=== PATIENT | male | born 1950 | race Caucasian/White ===

== ENCOUNTER 2020-03-19 17:56 | Inpatient (IN) | payer MEDICARE, SELFPAY ==
--- NOTE | ~2020-03-19 | XR_ITS ---
EXAMINATION: XR chest 1V portable DATE: 03/20/2020 05:00 INDICATION: Hypoxia. TECHNIQUE: A single frontal view of the chest was obtained on 2 radiographs. COMPARISON: Chest 2 views 03/19/2020, chest CT 03/19/2020 FINDINGS: There are lucencies in the upper lungs, consistent with emphysema. There is mild atelectasi s in right mid and lower lung zones. No pleural effusion or pneumothorax. The heart size is normal. T here is a large hiatal hernia. Median sternotomy wires and mediastinal surgical clips are seen, likel y from prior coronary artery bypass grafting. There are old healed rib fractures. IMPRESSION: 1. Mild atelectasis in right mid and lower lung zones. 2. Large hiatal hernia. 3. Emphysema. Reviewed, dictated and finalized at location A.
--- NOTE | ~2020-03-19 | XR_ITS ---
EXAMINATION: XR chest 2V EXAM DATE: 03/19/2020 19:20 INDICATION: Midsternal chest pain. TECHNIQUE: Frontal and lateral projections of the chest obtained and reviewed. There is no prior devan dy for comparison. FINDINGS: Some basilar scarring. Sternotomy wires are present without findings to suggest sternal de hiscence. No confluent consolidation, pneumothorax or pleural effusion suspected. Moderate sized alyssia roesophageal hiatal hernia. Moderate thoracolumbar levoscoliosis. IMPRESSION: No acute findings. Moderate hiatal hernia. Reviewed, dictated and finalized at location A.
--- NOTE | ~2020-03-19 | US_ITS ---
EXAMINATION: US venous doppler [facility] DATE: 03/21/2020 13:13 INDICATION: Lower limb swelling TECHNIQUE: Oliveira scale images without and with compression and Doppler images of the bilateral lower e xtremity veins were obtained. COMPARISON: None FINDINGS: The right common femoral vein, profunda femoral vein, femoral vein, popliteal vein, peroneal trunk, p osterior tibial veins, and greater saphenous vein are patent. The left common femoral vein, profunda femoral vein, femoral vein, popliteal vein, peroneal trunk, po sterior tibial veins, and greater saphenous vein are patent. IMPRESSION: 1. Patent bilateral lower extremity veins. No evidence of deep venous thrombosis. Reviewed, dictated and finalized at location A. IMPRESSION: 1. Patent bilateral lower extremity veins. No evidence of deep venous thrombosi s.
--- NOTE | ~2020-03-19 | CT_ITS ---
EXAMINATION: CTA chest abdomen pelvis EXAM DATE: 03/19/2020 19:16 INDICATION: Left-sided chest and abdominal pain. TECHNIQUE: Spiral CT of the chest, abdomen and pelvis was performed following intravenous injection o f 100 mL Omnipaque 350. Axial, coronal and sagittal images were reviewed. Coronal maximum intensity pixel images of chest reviewed. Maximum intensity projection 3-D reconstructions of the aorta were c reated by the technologist on dedicated workstation. The dose-length product (DLP) for this examina tion was 559.32 mGy-cm. The exposure was tailored according to patient size (auto mA exposure contro l), and iterative reconstruction (ASIR) was used as additional dose reduction technique. There is no prior study for comparison. FINDINGS: No aortic dissection. No central pulmonary emboli. There is moderate abdominal aortic arter ial sclerosis, with mild ectasia. CHEST: There is mild to moderate emphysema. 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 There are no pleura l or pericardial effusions. Some endobronchial debris. There is no mediastinal, hilar or axillary lymphadenopathy. There is no pneumothorax. Heart normal in size. There are sternotomy wires, an d cardiac/coronary surgical changes. Correlate with prior history. ABDOMEN PELVIS: The liver, spleen, adrenal glands and pancreas are unremarkable. There is 2.5 cm per ipherally calcified gallstone. Gallbladder is moderately distended but otherwise unremarkable. Mariam l and splenic veins are patent. Kidneys enhance symmetrically. There is no hydronephrosis. The pr ostate is unremarkable. The bladder is unremarkable. There is no retroperitoneal or pelvic lymphade nopathy. The appendix is normal. There is moderate-sized gastroesophageal hiatal hernia. There is moderate a mount of colonic stool. No free intraperitoneal gas. There is moderate lumbar levoscoliosis with posterior fusion rods. IMPRESSION: 1. No acute chest, abdomen, pelvic findings. 2. Moderate-sized gastroesophageal hiatal hernia. 3. Mild to moderate emphysema. 4. Stigmata of prior asbestos exposure. 5. Cholelithiasis. Moderately distended gallbladder. Reviewed, dictated and finalized at location A.
--- NOTE | 2020-03-19 17:57 | ECG_ITS ---
Measurements Intervals [place] Rate: 71 P: 71 ME: 158 QRS: 80 QRSD: 97 T: 63 QT: 382 QTc: 415 Interpretive Statements SINUS RHYTHM POSSIBLE LEFT ATRIAL ENLARGEMENT INCOMPLETE RIGHT BUNDLE BRANCH BLOCK BORDERLINE ECG Electronically Signed On 03-19-2020 19:22:56 CDT by Mike Boles D.O.
[2020-03-19 18:01] VITALS: BP 102/53; PULSE 72; RESP 22; TEMP 36.8; O2SAT 90
[2020-03-19 18:18] LABS: Basophils Absolute Auto 0.1 K/mm3 (0.0-0.1); Eosinophils Absolute Auto 0.3 K/mm3 (0-0.3); Hematocrit 43.3 % (42.0-52.0); Immature Granulocyte Absolute 0.02 K/mm3 (0.00-0.031); Immature Granulocyte Percent A 0.3 % (0-0.5); Lymphocytes Absolute Auto 1.89 K/mm3 (0.9-3.2); Lymphocytes Percent Auto 32.9 % (18.3-44.2); Mean Corpuscular Hemoglobin 26.7 pg (26-34); Mean Corpuscular Volume 89.1 fl (80-100); Monocytes Absolute Auto 0.6 K/mm3 (0.1-0.6); Monocytes Percent Auto 9.6 % (2.6-8.5); Neutrophils Absolute Auto 2.9 K/mm3 (1.3-6.7); Neutrophils Percent Auto 51.2 % (45.5-73.1); Platelet Count Result 200 k/mm3 (150-375); Red Blood Count 4.86 M/mm3 (4.6-6.20); Red Cell Distribution Width 19.1 % (11.5-14.5); White Blood Count 5.8 K/mm3 (4.5-10.0)
[2020-03-19 18:30] LABS: Anion Gap 5 mmol/L (8-16); Blood Urea Nitrogen 17 mg/dL (9-20); Carbon Dioxide 35 mmol/L (22-30); Chloride 96 mmol/L (98-107); Estimated CRCL calculation 45 ml/min; Estimated Glomerular Filt Rate 54; Glucose 89 mg/dL (75-110); Potassium 4.4 mmol/L (3.4-5.0); Sodium 136 mmol/L (137-145)
[2020-03-19 18:31] LABS: Prothrombin Time 12.9 Seconds (11.1-14.7)
[2020-03-19 18:42] LABS: Troponin I < 0.012 ng/mL (0.000-0.034)
--- NOTE | 2020-03-19 18:49 | ED.CHESTPAIN ---
HPI - Chest Pain General Chief Complaint: Chest Pain <Silvia Welsh MD - Last Filed: 03/20/20 00:47> Stated Complaint: chest pain <Silvia Welsh MD - Last Filed: 03/20/20 00:47> Time Seen by Provider: 03/19/20 18:49 <Silvia Welsh MD - Last Filed: 03/20/20 00:47> Source: patient, family and EMS <Silvia Welsh MD - Last Filed: 03/20/20 00:47> Mode of arrival: EMS <Silvia Welsh MD - Last Filed: 03/20/20 00:47> Limitations: no limitations <Silvia Welsh MD - Last Filed: 03/20/20 00:47> History of Present Illness HPI narrative: Patient is a 69 yo male with a history of COPD, CABG, multiple stents, hyperlipidemia, hypertension who presents for evaluation of chest pain. Patient was shopping at [employer] when he began to feel left-sided chest pain with radiation into the left side of his neck. He denies jaw pain, shoulder pain or left arm pain. Patient felt nauseated, sweaty, and hot with the pain. He took a nitroglycerin which improved his symptoms somewhat, still is having some very mild chest pain over the left chest. He reports radiation of the pain into the left lower flank. He reports heaviness in his left leg. He denies any numbness or weakness. No vomiting. Patient follows with Dr. Gallo ortega as his primary care physician and Dr. Altman at [facility] for cardiology. <Silvia Welsh MD - Last Filed: 03/20/20 00:47> Related Data Home Medications: Home Medications Medication Instructions Recorded Confirmed albuterol sulfate 2.5 mg CONTINUOUS NEBULIZATION Q6H 03/20/20 03/20/20 aspirin [Adult Aspirin] 81 mg PO DAILY 03/20/20 03/20/20 atorvastatin 40 mg PO HS 03/20/20 03/20/20 budesonide-formoterol [Symbicort] 2 puff INHALATION Q12H 03/20/20 03/20/20 cilostazol 100 mg PO BID 03/20/20 03/20/20 clopidogrel 75 mg PO DAILY 03/20/20 03/20/20 duloxetine 30 mg PO HS 03/20/20 03/20/20 finasteride 5 mg PO DAILY 03/20/20 03/20/20 furosemide 40 mg PO DAILY 03/20/20 03/20/20 isosorbide mononitrate 60 mg PO DAILY 03/20/20 03/20/20 lamotrigine 125 mg PO BID 03/20/20 03/20/20 methocarbamol 750 mg PO QID 03/20/20 03/20/20 metoprolol tartrate 100 mg PO Q12H 03/20/20 03/20/20 mirtazapine 45 mg PO HS 03/20/20 03/20/20 nitroglycerin 0.4 mg SUBLINGUAL Q5M PRN 03/20/20 03/20/20 oxybutynin chloride 5 mg PO DAILY 03/20/20 03/20/20 pantoprazole 40 mg PO BID 03/20/20 03/20/20 pregabalin [Lyrica] 100 mg PO TID 03/20/20 03/20/20 ranolazine [Ranexa] 500 mg PO Q12H 03/20/20 03/20/20 tamsulosin 0.4 mg PO DAILY 03/20/20 03/20/20 tiotropium bromide [Spiriva with 1 cap INHALATION BID 03/20/20 03/20/20 HandiHaler] <Silvia Welsh MD - Last Filed: 03/20/20 00:47> Allergies/Adverse Reactions: Allergies Allergy/AdvReac Type Severity Reaction Status Date / Time gabapentin Allergy Unknown Unknown Verified 03/20/20 16:55 <Silvia Welsh MD - Last Filed: 03/20/20 00:47> Review of Systems Review of Systems: Narrative: CONSTITUTIONAL: Denies fever, chills, or sweats. EYES: Denies visual changes ENT: Denies rhinorrhea, congestion, sore throat, or otalgia. CARDIOVASCULAR: Reports chest pain, denies edema RESPIRATORY: Denies cough or dyspnea. GASTROINTESTINAL: Denies abdominal pain, reports nausea GENITOURINARY: Denies dysuria or hematuria. SKIN: Denies rash or itching. MUSCULOSKELETAL: Denies back pain, joint pain, or myalgia. NEUROLOGIC: Denies headache, numbness, or weakness. <Silvia Welsh MD - Last Filed: 03/20/20 00:47> [facility] Past Medical History Medical History: Medical History (Updated 03/20/20 @ 19:33 by Shannan Thomas NP) BPH (benign prostatic hyperplasia) Chronic back pain COPD (chronic obstructive pulmonary disease) Coronary artery disease 3 cardiac stents and 2 vessel CABG DM2 (diabetes mellitus, type 2) diet controlled Hyperlipidemia Hypertension Peripheral vascular disease Seizures <Silvia Welsh MD - Last Filed:
[2020-03-19 18:50] VITALS: BP 104/57; PULSE 76; PULSE 79; RESP 18; O2SAT 86
--- NOTE | 2020-03-19 18:53 | PC.NURSE ---
pt placed on 3L via nc at this time, due to ra o2 at 86%, pt states that he normally wears 2l o2 at home as needed. jeremías boss at bedside.
--- NOTE | 2020-03-19 19:04 | PC.NURSE ---
PT TO CT AT THIS TIME, UNABLE TO MEDICATE PRIOR, WILL MEDICATE PER PROVIDER ORDER UPON RETURN.
--- NOTE | 2020-03-19 19:15 | PC.NURSE ---
BEDSIDE REPORT TO FRANCOISE SANABRIA AT THIS TIME, SHE HAS ASSUMED PT CARE.
[2020-03-19] MEDS: MORPHINE SULFATE (*CRX) 2 MG/ML INJ IV PUSH (19:26)
[2020-03-19] MEDS: ONDANSETRON INJ 4 MG/2 ML VIAL IV PUSH (19:26)
[2020-03-19] MEDS: ASPIRIN 81 MG CHEWABLE TABLET 324 MG PO (19:26)
[2020-03-19 20:24] VITALS: BP 98/48; PULSE 74; RESP 18; O2SAT 100
--- NOTE | 2020-03-19 20:25 | PC.NURSE ---
Spoke with Tatiana at [facility]- [phone], fax- [phone]. She has requested a face sheet be faxed to her & she is going request a bed & call back with assignment. ED US/ faxing face sheet.
[2020-03-19 21:07] LABS: Troponin I < 0.012 ng/mL (0.000-0.034)
[2020-03-19] MEDS: HEPARIN SOD/D5W 100 UNITS/ML 25,000 UNITS/250 ML BAG 9 UNITS IV CONT (21:10)
[2020-03-19] MEDS: HEPARIN SODIUM 5,000 UNITS/ML VIAL 4000 UNITS IV PUSH (21:11)
[2020-03-19 21:12] VITALS: BP 101/59; PULSE 77; RESP 22; O2SAT 100
--- NOTE | 2020-03-19 22:32 | PC.NURSE ---
[facility] called to confirm that a bed is still needed. They will continue to wait for an open bed.
[2020-03-19 22:54] VITALS: BP 102/62; PULSE 69; RESP 16; O2SAT 97
[2020-03-20] VITALS (37 sets, daily range): BP systolic 93–124; BP diastolic 52–77; PULSE 68–98; RESP 16–24; TEMP 36.1–36.9; O2SAT 90–100; BMI 26.2
--- NOTE | 2020-03-20 02:39 | PC.NURSE ---
[facility] called to inform that no bed available yet. Will check back in the am.
[2020-03-20] MEDS: SODIUM CHLORIDE 0.9% IV 1,000 ML 150 ML IV CONT (03:33)
[2020-03-20 04:09] LABS: Partial Thromboplastin Time 123.8 SECONDS (22.3-36.8)
[2020-03-20 04:24] LABS: Troponin I < 0.012 ng/mL (0.000-0.034)
[2020-03-20] MEDS: IPRATROPIUM BR 0.02% INH SOLN 0.5 MG/2.5 ML VIAL INHALATION ×3 (05:08→19:36)
[2020-03-20] MEDS: ALBUTEROL SULFATE NEB 2.5 MG/0.5 ML INH 5 MG INHALATION ×2 (05:08→19:36)
[2020-03-20 05:16] LABS: Base Excess ABG 5.8 mEq/l (+/-2.0); Carboxyhemoglobin 4.6 % THb (0-2.0); Fractional Inspired Oxygen 30 %; HCO3 ABG 40.4 mEq/l (22.0-26.0); Methemoglobin ABG 0.4 %THb (0-1.5); Oxygen Content ABG 17.1 %vol (16.0-22.0); Oxyhemoglobin 84.2 % THb (90.0-100.0); Reduced Hemoglobin 10.8 %THb (0-5.0); Total Hemoglobin 14.4 g/dL (12.0-18.0)
[2020-03-20 05:18] LABS: Oxygen Saturation ABG 82.7 % (95.0-100.0); PCO2 ABG 132.3 mmHg (35.0-45.0); pH ABG 7.103 (7.350-7.450)
[2020-03-20 05:20] LABS: Device NASAL CANNULA; Liters per Minute 2.5 LPM; Modified Allen's Test Pass; Site Drawn LEFT RADIAL
[2020-03-20 06:35] LABS: Alveolar/Arterial O2 Gradient 133.4 mmHg; Base Excess ABG 5.5 mEq/l (+/-2.0); Carboxyhemoglobin 4.2 % THb (0-2.0); Fractional Inspired Oxygen 46 %; HCO3 ABG 37.3 mEq/l (22.0-26.0); Methemoglobin ABG 0.2 %THb (0-1.5); Oxygen Content ABG 17.6 %vol (16.0-22.0); Oxygen Saturation ABG 92.6 % (95.0-100.0); Oxyhemoglobin 90.2 % THb (90.0-100.0); PO2 ABG 82.3 mmHg (80.0-100.0); PO2 FiO2 Ratio Arterial Blood 1.79 %; Reduced Hemoglobin 5.4 %THb (0-5.0); Total Hemoglobin 13.8 g/dL (12.0-18.0)
[2020-03-20 06:36] LABS: Device NON-INVASIVE VENT; Modified Allen's Test Pass; Non-Invasive Inspiratory Pressure 20 CMH2O; Non-Invasive Vent Rate 20 /MIN; PCO2 ABG 98.9 mmHg (35.0-45.0); Site Drawn RIGHT RADIAL; pH ABG 7.194 (7.350-7.450)
[2020-03-20 06:37] LABS: Non-Invasive Expiratory Pressure 8 CMH2O
--- NOTE | 2020-03-20 07:29 | PC.NURSE ---
Addendum entered by Romero Severino RN 03/20/20 07:35: This note was actually written at 0710 per this RN. Original Note: Bedside report received from FRANCOISE Barney, to continue care. Pt resting comfortably on stretcher. VSS. Pt awoken and mask adjusted due to noisy respirations; denies needs at present time. Note no change in Heparin gtt from PTT drawn at 0340 this am. Preparing to redraw and adjust heparin per protocol. Continue to await bed assignment at [facility].
--- NOTE | 2020-03-20 07:31 | PC.NURSE ---
Pt placed on airborne precautions due to being on bipap at this time.
[2020-03-20] MEDS: methylPREDNISolone SOD SUCC 125 MG VIAL IV PUSH (07:35)
--- NOTE | 2020-03-20 07:39 | PC.NURSE ---
received report from Savita OWUSU. patient sleeping. on CPap. appears comfortable. arouses easily to verbal stimuli. denies pain. meds given as ordered. needs PTT drawn for heparin protocol.
--- NOTE | 2020-03-20 07:46 | PC.NURSE ---
Addendum entered by Mary Montoya RN 03/20/20 08:00: per notes, patient placed on bipap at 0650 today. last PTT 0400. repeat PTT done now and sent to lab. Original Note: patient's chart reviewed. placed on Bipap overnight after ABGs were done.
--- NOTE | 2020-03-20 07:48 | PC.NURSE ---
callled [facility] no bed yet and no time frame if they might get one. [id number]
[2020-03-20 08:03] LABS: Partial Thromboplastin Time 54.4 SECONDS (22.3-36.8)
[2020-03-20] MEDS: HEPARIN SODIUM 5,000 UNITS/ML VIAL 4000 UNITS IV PUSH (08:30)
--- NOTE | 2020-03-20 08:35 | PC.NURSE ---
Heparin titrated per protocol. Pt status unchanged.
--- NOTE | 2020-03-20 09:21 | PC.NURSE ---
Received call from Shannon at the transfer center at [facility]. States no bed available at present time, awaiting discharges. Wondering about any change in patient condition. Explained that aren't sure if they're aware but the pt is on continuous bipap at present. Shannon states she was not aware of that (pt change in condition this am at approx 0400), will contact the powerhouse electrician apprentice, and will call back. Pt currently being moved to ED Rm 6 from H3. Respiratory precautions continue.
--- NOTE | 2020-03-20 10:17 | PC.NURSE ---
Call to the [facility] transfer line at [phone]. Spoke with Vero. States the patient was accepted to an ICU bed this am after Dr. Curry spoke with benefits representative, however, still waiting for a bed to become available. Pt updated.
--- NOTE | 2020-03-20 11:06 | PC.NURSE ---
Report to FRANCOISE Carmona, to continue care.
--- NOTE | 2020-03-20 13:20 | PC.NURSE ---
spoke to the transfer center at [facility]. still awaiting icu bed
[2020-03-20] MEDS: ALBUTEROL SULFATE NEB 2.5 MG/0.5 ML INH INHALATION (14:10)
--- NOTE | 2020-03-20 14:11 | ECG_ITS ---
Measurements Intervals [place] Rate: 81 P: 29 MN: 144 QRS: 43 QRSD: 97 T: 42 QT: 376 QTc: 437 Interpretive Statements SINUS RHYTHM POSSIBLE LEFT ATRIAL ENLARGEMENT INCOMPLETE RIGHT BUNDLE BRANCH BLOCK BASELINE ARTIFACT- I, II, III, AVR, AVL, AVF, V3 BORDERLINE ECG Electronically Signed On 03-20-2020 16:00:13 CDT by Mike Boles D.O.
[2020-03-20] MEDS: methylPREDNISolone SOD SUCC 40 MG VIAL IV PUSH (14:20)
[2020-03-20 14:32] LABS: Alveolar/Arterial O2 Gradient 97.1 mmHg; Base Excess ABG 2.6 mEq/l (+/-2.0); Fractional Inspired Oxygen 45 %; HCO3 ABG 33.7 mEq/l (22.0-26.0); Oxygen Content ABG 19.1 %vol (16.0-22.0); Oxygen Saturation ABG 97.5 % (95.0-100.0); Oxyhemoglobin 94.6 % THb (90.0-100.0); PO2 ABG 123.4 mmHg (80.0-100.0); PO2 FiO2 Ratio Arterial Blood 2.74 %; Total Hemoglobin 14.2 g/dL (12.0-18.0)
[2020-03-20 14:33] LABS: Device NON-INVASIVE VENT; Non-Invasive Expiratory Pressure 8 CMH2O; Non-Invasive Inspiratory Pressure 20 CMH2O; Non-Invasive Vent Rate 20 /MIN; PCO2 ABG 88.2 mmHg (35.0-45.0); Site Drawn RIGHT BRACHIAL
[2020-03-20 14:42] LABS: Partial Thromboplastin Time 71.1 SECONDS (22.3-36.8)
--- NOTE | 2020-03-20 14:52 | PC.NURSE ---
per verbal oder by dr lema discontinued heparin drip
--- NOTE | 2020-03-20 16:58 | ADMGEN ---
This patient, Herb Vila, was admitted to IMU Room 206-02 at 1610 on 03-20-2020. Patient/family oriented to hospital policies and general routines including ID bracelet, bed and alarms, visiting hours, pain management, procedures, bathroom and other care routines, personal items, smoking policy, room service/diet, and visiting hours. Valuables list has been completed. Information on how to activate the Rapid Response Team has been discussed. Patient/Family are encouraged to report perceived risks to care and to ask questions if they do not understand what they are told or what they should do.
[2020-03-20 17:05] LABS: Glucose Point of Care 104 (65-105)
--- NOTE | 2020-03-20 18:36 | PM.IMHP ---
H&P: HPI History of Present Illness Date/Time: 03/20/20 18:36 Chief complaint: acute respiratory failure/copd Narrative: Herb Vila is a 69 year old male Who has a history of coronary artery disease as well as COPD. The patient typically sees his fitting room associate at [facility]. The patient has had at least 3 cardiac stents in the past and 2 vessel CABG. He has also had 2 stents placed in his legs 1 in each leg. The patient came in to be evaluated for chest pain. He was shopping at the [employer] around this area when he developed some left-sided chest pain that radiated to his left neck he had no jaw pain patient stated he has not had any previous heart attack. He had mild chest pain over the left chest and some heaviness his left leg. Dr. MAYANK VAZQUEZ is his fitting room associate at [facility]. His cardiac enzymes have been negative x3 here. However the patient had replaced on a BiPAP here because of respiratory distress. Patient was lethargic but is now waking eating. His O2 saturation had decreased to 88% on the 2 L he typically wears 2 L at home. The patient was found to be acidotic and hypercapnic and was placed on a BiPAP overnight the patient initially was started on heparin drip but is troponins were negative x3. Initially he was accepted at [facility] however they did not have a bed for the patient prior to him being admitted to the floor they called again and said did the did not have an ICU bed. The patient has come off the BiPAP machine and is off the heparin drip. The clinical lab scientist was called here to see if he could be admitted to the ICU and it was suggested that the patient go to IMU. The patient no longer has any chest pain and is being admitted to IMU. I discussed this with the patient and reviewed all information with him I feel this was probably more of an exacerbation of COPD however I told the patient that he is more than welcome to go to [facility] to be re-evaluated by his fitting room associate. The patient had a cardiac catheterization last 2014 I believe. He had received 3 cardiac stents. it was noted that the last time he was hospitalized for chest pain which June 14, 2015 to June 16, 2015 at [facility] for chest pain and shortness of breath. All of his test were negative in regards to blockages. The patient stated that he would rather stay here and finishes treatment and then follow-up with his fitting room associate outpatient. His chest x-ray today shows some mild atelectasis in the right mid and lower lung zones. Large hiatal hernia and emphysema. The patient had been on the BiPAP overnight and the patient states he feels much better. His last ABG was at 2:29 a.m. this afternoon his pH was 7.2 CO2 was 88.2 and PO2 was 123. Patient is being admitted inpatient to IMU for respiratory distress. Most likely COPD exacerbation. The patient had been given Solu-Medrol and given nebulizer treatments. Date of service 03/20/2020 Review of Systems Review of Systems: All systems reviewed & are unremarkable except as noted in HPI and below Constitutional: Constitutional: Reports as per HPI and Reports no additional constitutional complaints Eyes: Eyes: Reports as per HPI and Reports no additional eye complaints ENT: Reports system reviewed and no additional complaints, except as documented and Reports Normal hearing present Cardiovascular: Cardiovascular: Reports no additional cardiovascular complaints Respiratory: Respiratory: Reports no additional respiratory complaints and Reports no additional respiratory complaints Gastrointestinal: Gastrointestinal: Reports as per HPI and Reports no additional gastrointestinal complaints Musculoskeletal: Musculoskeletal: Reports no additional musculoskeletal complaints Integumentary/Breasts: Skin/Breast: Reports system reviewed and no additional complaints, except as docu and Repo
[2020-03-20] MEDS: PREGABALIN (*CRX) 50 MG CAPSULE 100 MG PO (20:46)
[2020-03-20] MEDS: METOPROLOL TARTRATE 50 MG TAB 100 MG PO (20:46)
[2020-03-20] MEDS: methocarbamoL 750 MG TABLET PO (20:47)
[2020-03-20] MEDS: lamoTRIgine 25 MG TABLET PO (20:47)
[2020-03-20] MEDS: lamoTRIgine 100 MG TABLET PO (20:47)
[2020-03-20] MEDS: MIRTAZAPINE 15 MG TABLET 45 MG PO (20:48)
[2020-03-20] MEDS: PANTOPRAZOLE 40 MG TABLET PO (20:48)
[2020-03-20] MEDS: ATORVASTATIN 40 MG TABLET PO (20:49)
[2020-03-20] MEDS: RANOLAZINE 500 MG TAB.ER.12H PO (20:49)
[2020-03-20] MEDS: DULoxetine HCL 30 MG CAPSULE.DR PO (20:49)
[2020-03-20 21:05] LABS: Glucose Point of Care 276 (65-105)
[2020-03-20] MEDS: methylPREDNISolone SOD SUCC 125 MG VIAL 60 MG IV PUSH (23:23)
[2020-03-21] VITALS (26 sets, daily range): BP systolic 103–131; BP diastolic 57–69; PULSE 56–94; RESP 12–24; TEMP 35.9–36.6; O2SAT 93–100
[2020-03-21] MEDS: ALBUTEROL SULFATE NEB 2.5 MG/0.5 ML INH 5 MG INHALATION ×4 (01:54→20:52)
[2020-03-21] MEDS: IPRATROPIUM BR 0.02% INH SOLN 0.5 MG/2.5 ML VIAL INHALATION ×4 (01:54→20:52)
[2020-03-21 05:07] LABS: Hemoglobin A1C 5.6 % (<5.7)
[2020-03-21 05:20] LABS: Alanine Aminotransferase 9 U/L (4-50); Albumin Level 3.3 g/dL (3.5-5.1); Alkaline Phosphatase 71 U/L (38-126); Anion Gap 3 mmol/L (8-16); Aspartate Amino Transferase 12 U/L (17-59); Bilirubin,Total 0.4 mg/dL (0.2-1.3); Blood Urea Nitrogen 18 mg/dL (9-20); Calcium 8.5 mg/dL (8.4-10.2); Carbon Dioxide 38 mmol/L (22-30); Chloride 96 mmol/L (98-107); Estimated CRCL calculation 71 ml/min; Estimated Glomerular Filt Rate > 60; Glucose 161 mg/dL (75-110); Magnesium 1.9 mg/dL (1.6-2.3); Potassium 4.6 mmol/L (3.4-5.0); Sodium 137 mmol/L (137-145)
[2020-03-21] MEDS: methylPREDNISolone SOD SUCC 125 MG VIAL 60 MG IV PUSH ×2 (06:05→17:12)
[2020-03-21 07:29] LABS: Glucose Point of Care 142 (65-105)
[2020-03-21 08:13] LABS: Free T4 Free Thyroxine Reflex 0.67 ng/dL (0.78-2.19)
[2020-03-21] MEDS: methocarbamoL 750 MG TABLET PO ×4 (09:50→20:35)
[2020-03-21] MEDS: lamoTRIgine 100 MG TABLET PO ×2 (09:50→20:35)
[2020-03-21] MEDS: FUROSEMIDE 40 MG TABLET PO (09:50)
[2020-03-21] MEDS: EUCERIN CREAM 120 GM JAR 1 APPLIC TOPICAL (09:50)
[2020-03-21] MEDS: ASPIRIN 81 MG CHEWABLE TABLET PO (09:51)
[2020-03-21] MEDS: CLOPIDOGREL BISULFATE 75 MG TABLET PO (09:51)
[2020-03-21] MEDS: OXYBUTYNIN CHLORIDE 5 MG TABLET PO (09:51)
[2020-03-21] MEDS: lamoTRIgine 25 MG TABLET PO ×2 (09:51→20:36)
[2020-03-21] MEDS: ISOSORBIDE MONONITRATE 60 MG TAB.ER.24H PO (09:52)
[2020-03-21] MEDS: TAMSULOSIN HCL 0.4 MG CAPSULE PO (09:52)
[2020-03-21] MEDS: cilostazoL 100 MG TABLET PO ×2 (09:52→16:40)
[2020-03-21] MEDS: RANOLAZINE 500 MG TAB.ER.12H PO ×2 (09:52→20:37)
[2020-03-21] MEDS: METOPROLOL TARTRATE 50 MG TAB 100 MG PO ×2 (09:52→20:35)
[2020-03-21] MEDS: PANTOPRAZOLE 40 MG TABLET PO ×2 (09:52→20:36)
[2020-03-21] MEDS: FINASTERIDE 5 MG TABLET PO (09:53)
[2020-03-21] MEDS: PREGABALIN (*CRX) 50 MG CAPSULE 100 MG PO ×3 (09:55→17:13)
[2020-03-21 10:52] LABS: Cortisol Baseline 4.88 ug/dL
--- NOTE | 2020-03-21 11:09 | PM.IMPN ---
Progress Note: A&P Assessment and Plan (1) Acute on chronic respiratory failure with hypoxia and hypercapnia: Code(s): J96.21 - Acute and chronic respiratory failure with hypoxia; J96.22 - Acute and chronic respiratory failure with hypercapnia Status: Acute Assessment and Plan: The patient came into the hospital with increased shortness of breath with associated dizziness, lightheadedness and some substernal chest discomfort with breathing while he was walking around at the store. Based on his imaging and evaluation it appears he has COPD exacerbation. He was also acting very confused and states he does not remember most of what happened the 1st 2 days. He was found to have acute respiratory failure with hypoxia and hypercapnia on ABG with a pCO2 of 98. He was placed on a continuous BiPAP with improvement of his altered mental status and hypercapnia and pH. We are treating him for acute COPD exacerbation with IV Solu-Medrol which I decreased to 60 mg q.12hr, DuoNeb treatments q.6hr. I consulted pulmonology because he does not have a dermatology teacher and I would like their input on medication adjustments, recommendations and trying to get the patient on a possible trilogy machine for home due to his severe hypercapnia. He is otherwise alert, oriented and states he feels like he is almost at his baseline at this time. Continue monitoring, slowly decrease IV Solu-Medrol based on his symptoms and COPD exacerbation, recommendations from pulmonology is greatly appreciated. (2) COPD (chronic obstructive pulmonary disease): Code(s): J44.9 - Chronic obstructive pulmonary disease, unspecified Status: Chronic Assessment and Plan: Acute on chronic COPD exacerbation with hypoxia and hypercapnia. He is on 2 L of oxygen at home with rest and exertion. He states he wears his oxygen when needed. He takes his inhalers as prescribed. He does do his nebulizer treatments as needed. He does not have a dermatology teacher so I have consult pulmonology for his acute problem Continue weaning Solu-Medrol IV Continue DuoNeb treatments. Continue monitoring and hopefully discharge in the next 1-2 days based on his symptoms. Pulmonology input is greatly appreciated (3) DM2 (diabetes mellitus, type 2): Code(s): E11.9 - Type 2 diabetes mellitus without complications Status: Chronic Assessment and Plan: The patient is diet controlled. Hemoglobin A1c is 5.6%. No need to monitor his glucose while he is in the hospital. (4) Seizures: Code(s): R56.9 - Unspecified convulsions Status: Chronic Assessment and Plan: The patient has been on Lamictal and states he has not had a seizure in a long time. Will need seizure precautions. (5) BPH (benign prostatic hyperplasia): Code(s): N40.0 - Benign prostatic hyperplasia without lower urinary tract symptoms Status: Chronic Assessment and Plan: Continue with finasteride. (6) Chest pain: Qualifiers: Chest pain type: chest pain due to myocardial ischemia Ischemic chest pain type: unstable angina pectoris Qualified Code(s): I20.0 - Unstable angina Code(s): R07.9 - Chest pain, unspecified Status: Acute Assessment and Plan: The patient initially started having shortness of breath along with dizziness/lightheadedness prior to arrival but then developed some substernal chest pain which he states was only with breathing. On Arrival his cardiac enzymes were negative x3. He does have an extensive cardiac history with CAD status post PCI and CABG, PAD with stents placed. Will continue on the patient's aspirin and Plavix at this time We will have him follow-up with his research affiliate si
[2020-03-21 12:49] LABS: Glucose Point of Care 184 (65-105)
[2020-03-21 13:04] LABS: Alveolar/Arterial O2 Gradient 55.9 mmHg; Base Excess ABG 6.6 mEq/l (+/-2.0); Carboxyhemoglobin 0.8 % THb (0-2.0); Fractional Inspired Oxygen 26 %; HCO3 ABG 32.8 mEq/l (22.0-26.0); Methemoglobin ABG 0.4 %THb (0-1.5); Oxygen Saturation ABG 92.9 % (95.0-100.0); Oxyhemoglobin 91.3 % THb (90.0-100.0); PCO2 ABG 53.4 mmHg (35.0-45.0); PO2 ABG 66.2 mmHg (80.0-100.0); PO2 FiO2 Ratio Arterial Blood 2.55 %; Reduced Hemoglobin 7.5 %THb (0-5.0); Total Hemoglobin 13.2 g/dL (12.0-18.0); pH ABG 7.406 (7.350-7.450)
[2020-03-21 13:05] LABS: Device NASAL CANNULA; Liters per Minute 1.5 LPM; Modified Allen's Test Pass; Site Drawn RIGHT RADIAL
--- NOTE | 2020-03-21 16:32 | PC.NURSE ---
This patient, Herb Vila, was transferred to [facility] on 03/21/20 at 1628. Personal belongings sent with patient. Report given to Nohelia OWUSU. Appropriate documentation sent with patient.
--- NOTE | 2020-03-21 16:35 | PC.NURSE ---
This patient, Herb Vila, was received from [imu ] on 03/21/20 at 1636. Personal belongings list checked and signed. Patient/family oriented to unit policies and routines
[2020-03-21 17:46] LABS: Glucose Point of Care 120 (65-105)
[2020-03-21] MEDS: ATORVASTATIN 40 MG TABLET PO (20:35)
[2020-03-21] MEDS: MIRTAZAPINE 15 MG TABLET 45 MG PO (20:36)
[2020-03-21] MEDS: DULoxetine HCL 30 MG CAPSULE.DR PO (20:37)
[2020-03-21 21:48] LABS: Glucose Point of Care 188 (65-105)
[2020-03-22] VITALS (19 sets, daily range): BP systolic 107–146; BP diastolic 53–76; PULSE 74–95; RESP 14–20; TEMP 36.4–37.3; O2SAT 93–99
--- NOTE | 2020-03-22 | ECHO_ITS ---
Patient Info Name: Herb Vila Age: 69 years : 1950 Gender: Male Ht: 68 in Wt: 178 lbs BSA: 1.98 m2 HR: 79 bpm BP: 146 / 76 mmHg Heart Rhythm: Sinus Rhythm Technical Quality: Good Exam Date: 03/22/2020 1:50 PM Exam Location: [facility] Pulmonary Patient Status: Inpatient Admit Date: 03/20/2020 Staff Ordering Physician: Jannette Edmonds MD Proposal Manager: Sonu Flannery RDCS, RT Attending Provider: Mile Damon PA-C Referring Physician: Grey ANDERSON; Exam Type: CA echo doppler color flow Study Info Indications I50.9 - Heart failure, unspecified Complete two-dimensional, color flow and Doppler transthoracic echocardiogram is performed. Strain analysis performed. Summary 1. Complete two-dimensional, color flow and Doppler transthoracic echocardiogram is performed. 2. Strain analysis performed. 3. Left ventricular chamber dimension is normal. 4. Left ventricular systolic function is normal, estimated at 60-65%. 5. There is mildly increased left ventricular wall thickness. 6. The left ventricular diastolic function is grade II diastolic dysfunction. 7. Global longitudinal strain is abnormal at -14 %. 8. Right ventricular chamber dimension is severely enlarged. 9. There is mild mitral valve regurgitation. 10. There is mild tricuspid valve regurgitation. 11. Moderate pulmonary hypertension, estimated pulmonary arterial systolic pressure is 48 mmHg. Left Ventricle Left ventricular chamber dimension is normal. Left ventricular systolic function is normal, estimated at 60-65%. There is mildly increased left ventricular wall thickness. The left ventricular diastolic function is grade II diastolic dysfunction. Global longitudinal strain is abnormal at -14 %. Right Ventricle Right ventricular chamber dimension is severely enlarged. Right ventricular systolic function is normal. Left Atria Left atrial chamber dimension is normal. Right Atria Right atrial chamber dimension is normal. Aortic Valve The aortic valve is trileaflet. There is mild aortic valve sclerosis. There is no aortic valve stenosis. There is trace aortic valve regurgitation. Pulmonic Valve The pulmonic valve is normal. There is no pulmonic valve stenosis. There is trace pulmonic regurgitation. Mitral Valve The mitral valve has normal leaflets. There is no mitral valve stenosis. There is mild mitral valve regurgitation. Tricuspid Valve The tricuspid valve leaflets are normal. There is no significant tricuspid valve stenosis. There is mild tricuspid valve regurgitation. Moderate pulmonary hypertension, estimated pulmonary arterial systolic pressure is 48 mmHg. Pericardium/Pleural The pericardium appears normal. There is no pericardial effusion. Inferior Vena Cava Dilated inferior vena cava with <50% collapse upon inspiration consistent with elevated right atrial pressure, 15 mmHg. Aorta The aortic root size at the sinus of Valsalva is normal. Left Ventricular Outflow Tract Name Value Normal LVOT 2D LVOT Diameter 2.0 cm LVOT Doppler LVOT Peak Gradient 4 mmH
[2020-03-22] MEDS: ALBUTEROL SULFATE NEB 2.5 MG/0.5 ML INH 5 MG INHALATION ×2 (01:34→10:10)
[2020-03-22] MEDS: IPRATROPIUM BR 0.02% INH SOLN 0.5 MG/2.5 ML VIAL INHALATION ×2 (01:35→10:10)
[2020-03-22 05:39] LABS: Hematocrit 35.1 % (42.0-52.0); Mean Corpuscular HGB Conc 31.3 g/dl (32-36); Mean Corpuscular Hemoglobin 27.2 pg (26-34); Mean Corpuscular Volume 86.9 fl (80-100); Mean Platelet Volume 10.5 fl (7.4-10.4); Platelet Count Result 176 k/mm3 (150-375); Red Blood Count 4.04 M/mm3 (4.6-6.20); Red Cell Distribution Width 19.4 % (11.5-14.5); White Blood Count 10.1 K/mm3 (4.5-10.0)
[2020-03-22 05:56] LABS: Anion Gap 2.99999 mmol/L (8-16); Blood Urea Nitrogen 21 mg/dL (9-20); Calcium 8.4 mg/dL (8.4-10.2); Carbon Dioxide > 40 mmol/L (22-30); Chloride 96 mmol/L (98-107); Estimated CRCL calculation 74 ml/min; Estimated Glomerular Filt Rate > 60; Glucose 156 mg/dL (75-110); Potassium 3.8 mmol/L (3.4-5.0); Sodium 139 mmol/L (137-145)
[2020-03-22] MEDS: methylPREDNISolone SOD SUCC 125 MG VIAL 60 MG IV PUSH (06:17)
[2020-03-22 07:50] LABS: Glucose Point of Care 126 (65-105)
[2020-03-22 08:41] LABS: Alveolar/Arterial O2 Gradient 44.3 mmHg; Base Excess ABG 9.1 mEq/l (+/-2.0); Carboxyhemoglobin 0.3 % THb (0-2.0); Fractional Inspired Oxygen 28 %; HCO3 ABG 35.4 mEq/l (22.0-26.0); Methemoglobin ABG 0.4 %THb (0-1.5); Oxygen Content ABG 17.6 %vol (16.0-22.0); Oxygen Saturation ABG 96.8 % (95.0-100.0); Oxyhemoglobin 95.7 % THb (90.0-100.0); PCO2 ABG 56.1 mmHg (35.0-45.0); PO2 ABG 89.1 mmHg (80.0-100.0); PO2 FiO2 Ratio Arterial Blood 3.18 %; Reduced Hemoglobin 3.6 %THb (0-5.0); pH ABG 7.418 (7.350-7.450)
[2020-03-22 08:42] LABS: Device NASAL CANNULA; Site Drawn RIGHT BRACHIAL
[2020-03-22] MEDS: OXYBUTYNIN CHLORIDE 5 MG TABLET PO (09:41)
[2020-03-22] MEDS: METOPROLOL TARTRATE 50 MG TAB 100 MG PO ×2 (09:41→21:58)
[2020-03-22] MEDS: RANOLAZINE 500 MG TAB.ER.12H PO ×2 (09:41→21:59)
[2020-03-22] MEDS: TAMSULOSIN HCL 0.4 MG CAPSULE PO (09:41)
[2020-03-22] MEDS: PANTOPRAZOLE 40 MG TABLET PO ×2 (09:41→21:59)
[2020-03-22] MEDS: ISOSORBIDE MONONITRATE 60 MG TAB.ER.24H PO (09:42)
[2020-03-22] MEDS: FUROSEMIDE 40 MG TABLET PO (09:42)
[2020-03-22] MEDS: lamoTRIgine 25 MG TABLET PO ×2 (09:42→21:57)
[2020-03-22] MEDS: methocarbamoL 750 MG TABLET PO ×4 (09:42→21:57)
[2020-03-22] MEDS: FINASTERIDE 5 MG TABLET PO (09:42)
[2020-03-22] MEDS: CLOPIDOGREL BISULFATE 75 MG TABLET PO (09:42)
[2020-03-22] MEDS: lamoTRIgine 100 MG TABLET PO ×2 (09:42→21:58)
[2020-03-22] MEDS: PREGABALIN (*CRX) 50 MG CAPSULE 100 MG PO ×3 (09:42→17:39)
[2020-03-22] MEDS: cilostazoL 100 MG TABLET PO ×2 (09:42→18:33)
[2020-03-22] MEDS: ASPIRIN 81 MG CHEWABLE TABLET PO (09:42)
[2020-03-22] MEDS: EUCERIN CREAM 120 GM JAR 1 APPLIC TOPICAL (09:43)
[2020-03-22 10:24] LABS: NT Pro B Type Natriuretic Pept 935 PG/ML (5-100)
[2020-03-22 11:03] LABS: Troponin I < 0.012 ng/mL (0.000-0.034)
[2020-03-22] MEDS: ACETAMINOPHEN 500 MG TABLET PO ×3 (11:05→17:39)
--- NOTE | 2020-03-22 11:06 | PM.CNPUL ---
Assessment and Plan Assessment and plan (1) CHF (congestive heart failure): Code(s): I50.9 - Heart failure, unspecified Status: Acute Assessment and Plan: Pt's presentation is more consistent with CHF and acute coronary syndrome - Echo pending - BNP elevated. - trop rechecked - consider Cardiology consult - increase lasix and add spironolactone (2) COPD (chronic obstructive pulmonary disease): Qualifiers: COPD type: unspecified COPD Qualified Code(s): J44.9 - Chronic obstructive pulmonary disease, unspecified Code(s): J44.9 - Chronic obstructive pulmonary disease, unspecified Status: Chronic Assessment and Plan: He does have severe and despite the acute hypercapnia which has resolved I do not see signs of significant COPD exacerbtion, pneumonia or bronchitis - no need for home Trilogy at this point - d/c ipratropium and start Spiriva 18 mcg 1 puff daily - continue Symbicort 160/4.5 mcg 2 puffs bid via spacer device - change albuterol to 2.5 mg Q6h PRN - d/c systemic steroids. History of Present Illness History of Present Illness Consult date: 03/22/20 Chief complaint: acute respiratory failure/copd Narrative: 69 y/o with h/o CAD, PVD, COPD, HTN, DM, hyperlipidemia presents with progressive dyspnea, orthopnea, LE edema as well as chest pressure radiating to both arms. He says the chest pressure on exertion has been going on for many weeks and it usually radiates to both sides of his neck. He's had 5 stents and CABG. His stents were placed > five years ago. He quit smoking is very compliant with his inhalers and other meds. He denies cough, fever, wheezing, sore throat or runny nose. He denies loss of taste or smell or diarrhea although he did have some nausea and vomiting in the week. CXR shows pulmonary vascular congestion on 03/20/20 and BNP today is 935. Review of Systems Review of Systems: All systems reviewed & are unremarkable except as noted in HPI and below PMFSH Past Medical History Medical History (Updated 03/22/20 @ 11:18 by Jannette Edmonds MD) BPH (benign prostatic hyperplasia) CAD (coronary artery disease) Chronic back pain COPD (chronic obstructive pulmonary disease) Coronary artery disease 3 cardiac stents and 2 vessel CABG DM2 (diabetes mellitus, type 2) diet controlled Hyperlipidemia Hypertension Peripheral vascular disease Seizures Surgical History Surgical History (Updated 03/20/20 @ 18:53 by Shannan Thomas NP) History of back surgery screws and fusion of for vertebrae in lumbar region. History of thoracotomy History of tonsillectomy and adenoidectomy Hx of CABG 2v S/P peripheral artery angioplasty with stent placement Family History Family History Son Acute myocardial infarction Mother Diabetes mellitus Heart disease Father Heart disease Social History Social History (Updated 03/20/20 @ 19:13 by Shannan Thomas NP) Social History: The patient is . And his daughter Brenda is the durable power estate attorney for healthcare. The patient desires to be a full code. He is now retired. He smokes about 3-4 cigarettes a day. He is a social drinker. He has 3 children Smoking packs per day: 0.5 Smoking cigarettes per day: 10.0 Years smoked: 30 Smoking pack-years: 15.00 Smoking status: Current every day smoker Tobacco type: cigarettes Second hand tobacco smoke exposure: Yes Alcohol intake: never Substance use: never Spiritual care concerns: No Meds Home Medications and Allergies Home Medications Medication Instructions Recorded Confirmed Type albuterol sulfate 2.5 mg CONTINUOUS NEBULIZATION Q6H 03/20/20 03/20/20 History aspirin [Adult Aspirin] 81 mg PO DAILY 03/20/20 03/20/20 History atorvastatin 40 mg PO HS 03/20/20 03/20/20 History budesonide-formoterol [Symbicort] 2 puff INHALATION Q12H 03/20/20 03/20/20 History cilostazol 100
--- NOTE | 2020-03-22 11:23 | PM.IMPN ---
Progress Note: A&P Assessment and Plan (1) Chest pain: Qualifiers: Chest pain type: chest pain due to myocardial ischemia Ischemic chest pain type: unstable angina pectoris Qualified Code(s): I20.0 - Unstable angina Code(s): R07.9 - Chest pain, unspecified Status: Acute Assessment and Plan: The patient initially started having shortness of breath along with dizziness/lightheadedness prior to arrival but then developed some substernal chest pain which he states was only with breathing. On Arrival his cardiac enzymes were negative x3. He does have an extensive cardiac history with CAD status post PCI and CABG, PAD with stents placed. Will continue on the patient's aspirin and Plavix at this time Initially due to his symptoms and workup they believed it was due to a COPD exacerbation for which we are treating him for. 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 Cardiology was consulted at this time and are pending their evaluation. He has p.r.n. nitro He has not had any more chest pain since arrival. Continue monitoring for more chest pain. (2) Acute on chronic respiratory failure with hypoxia and hypercapnia: Code(s): J96.21 - Acute and chronic respiratory failure with hypoxia; J96.22 - Acute and chronic respiratory failure with hypercapnia Status: Acute Assessment and Plan: The patient came into the hospital with increased shortness of breath with associated dizziness, lightheadedness and some substernal chest discomfort with breathing while he was walking around at the store. Based on his imaging and evaluation it appears he has COPD exacerbation. He was also acting very confused and states he does not remember most of what happened the 1st 2 days. He was found to have acute respiratory failure with hypoxia and hypercapnia on ABG with a pCO2 of 98. He was placed on a continuous BiPAP with improvement of his altered mental status and hypercapnia and pH. We are treating him for acute COPD exacerbation Pulmonology was consulted for further evaluation. He states he does not believe the patient's symptoms due to a COPD exacerbation and recommends discontinuing the IV Solu-Medrol, continuing Spiriva and Symbicort, and he does not believe that he will need a trilogy upon discharge. He is also concerned that his symptoms were related to underlying angina and cardiac related and recommend getting Cardiology involved. Patient is on 2L home oxygen at this time without any issues. Continue monitoring. (3) COPD (chronic obstructive pulmonary disease): Qualifiers: COPD type: unspecified COPD Qualified Code(s): J44.9 - Chronic obstructive pulmonary disease, unspecified Code(s): J44.9 - Chronic obstructive pulmonary disease, unspecified Status: Chronic Assessment and Plan: Acute on chronic COPD exacerbation with hypoxia and hypercapnia. He is on 2 L of oxygen at home with rest and exertion. He states he wears his oxygen when needed. He takes his inhalers as prescribed. He does do his nebulizer treatments as needed. Pulmonology recommended Spiriva and Symbicort and discontinue IV Solu-medrol at this time. Continue monitoring and hopefully discharge in the next 1-2 days based on his symptoms. Pulmonology input is greatly appreciated (4) DM2 (diabetes mellitus, type 2): Code(s): E11.9 - Type 2 diabetes mellitus without complications Status: Chronic Assessment and Plan: The patient is diet controlled. Hemoglobin A1c is 5.6%. No need to monitor his glucose while he is in the hospital. (5) Seizures: C
[2020-03-22 11:41] LABS: Glucose Point of Care 161 (65-105)
[2020-03-22] MEDS: DOCUSATE SODIUM 100 MG CAPSULE PO (15:26)
--- NOTE | 2020-03-22 16:13 | PM.CNCAR ---
Assessment and Plan Additional Plan 69-year-old man with: History of multivessel coronary artery disease remote history of surgical revascularization as well as subsequent percutaneous revascularization. He does not receive any of his care here at this hospital. He presented here several days ago with this symptoms that occurred in the evening while he was shopping. It appears that acute coronary syndrome was ruled out by serial ECGs and biomarkers. There is no clinical evidence in this history or physical exam in my opinion to suggest that this man has a state of decompensated heart failure. Since he has had recent noninvasive testing by his established foamite mixer I do not see any compelling reason to conduct another ischemic workup at this hospital. I believe he can be safely discharged for follow-up with his established foamite mixer, Dr. Garcia in [place]. Please contact me if you have any questions regarding this opinion Jonnie Hatch MD [facility] History of Present Illness History of Present Illness Consult date/time: 03/22/20 16:13 Consult reason: chest pain Reason For Visit: acute respiratory failure/copd Narrative: This is a 69-year-old man with a long history of coronary artery disease with previous surgical and percutaneous revascularization. I am seeing him at the request of the hospitalist because of an episode of some symptoms including chest pain that occurred 3 days ago on Wednesday night of this week. The patient states that he was doing some shopping as local store in this area in [place] when he started to notice some sense of pressure-like pain in the center of his chest which then was associated with a sense of some shortness of breath the pain that included radiation and some paresthesias in both arms and then down for the trunk and into both legs. Because of these symptoms he became concerned and he was taken by ambulance to the emergency room here at [place] where he was evaluated. His electrocardiogram showed sinus rhythm with incomplete left bundle branch block but no acute ST segment abnormalities. His biomarkers were negative and have remained negative. He was admitted for further evaluation and management. He carries the diagnosis of chronic lung disease and has home oxygen supplied by his physician but states that he was told that he really only needed to use it at night. He has altogether history of about 40 years of smoking between a pack and a pack and half per day in the past. 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 He described a retrosternal chest pain that he thought was dyspepsia at that time. He reports the was transferred to [place] to [facility] where he underwent coronary angiography followed by surgical myocardial revascularization. Obviously I do not have any of those records at my disposal at as I dictate this note. For some reason after discharge from [facility] rather than following up with our practice he continued done to follow up with his foamite mixer, Dr. Garcia in [place]. He states that over the years in follow-up he has had 2 or 3 percutaneous interventions performed we do not have any of the details as to whether these were done in [place] coronary arteries or in bypass graft. He has not had any interventions however in at least 8-10 years. There are records from his established foamite mixer that did demonstrate that he had a noninvasive evaluation including echocardiography and nuclear stress testing the 1st part of this year because of some intermittent episodes of chest pain and dyspnea which were negative. Despite his extensive history of coronary disease his left ventricular systolic function remains normal. The patient saw a pulmonology [facility] consultant here at [facility] who recommended con
[2020-03-22 16:32] LABS: Glucose Point of Care 120 (65-105)
[2020-03-22] MEDS: ATORVASTATIN 40 MG TABLET PO (21:56)
[2020-03-22] MEDS: DULoxetine HCL 30 MG CAPSULE.DR PO (21:57)
[2020-03-22] MEDS: MIRTAZAPINE 15 MG TABLET 45 MG PO (21:58)
[2020-03-22 22:13] LABS: Glucose Point of Care 141 (65-105)
[2020-03-23] VITALS (10 sets, daily range): BP systolic 102–109; BP diastolic 54–66; PULSE 71–111; RESP 16–22; TEMP 36.4–36.9; O2SAT 92–98
[2020-03-23 08:00] LABS: Base Excess ABG 12.7 mEq/l (+/-2.0); Carboxyhemoglobin 0.2 % THb (0-2.0); Fractional Inspired Oxygen 28 %; HCO3 ABG 40.8 mEq/l (22.0-26.0); Methemoglobin ABG 0.4 %THb (0-1.5); Oxygen Content ABG 16.7 %vol (16.0-22.0); Oxygen Saturation ABG 93.6 % (95.0-100.0); Oxyhemoglobin 92.5 % THb (90.0-100.0); PO2 ABG 72.2 mmHg (80.0-100.0); PO2 FiO2 Ratio Arterial Blood 2.58 %; Reduced Hemoglobin 6.9 %THb (0-5.0); Total Hemoglobin 12.8 g/dL (12.0-18.0); pH ABG 7.379 (7.350-7.450)
[2020-03-23 08:02] LABS: Device NASAL CANNULA; Modified Allen's Test Pass; PCO2 ABG 70.7 mmHg (35.0-45.0); Site Drawn RIGHT RADIAL
[2020-03-23] MEDS: PREGABALIN (*CRX) 50 MG CAPSULE 100 MG PO (08:26)
[2020-03-23] MEDS: methocarbamoL 750 MG TABLET PO (08:26)
[2020-03-23] MEDS: FUROSEMIDE 40 MG TABLET PO (08:26)
[2020-03-23] MEDS: METOPROLOL TARTRATE 50 MG TAB 100 MG PO (08:26)
[2020-03-23] MEDS: ASPIRIN 81 MG CHEWABLE TABLET PO (08:26)
[2020-03-23] MEDS: lamoTRIgine 25 MG TABLET PO (08:26)
[2020-03-23] MEDS: CLOPIDOGREL BISULFATE 75 MG TABLET PO (08:27)
[2020-03-23] MEDS: ACETAMINOPHEN 500 MG TABLET PO (08:27)
[2020-03-23] MEDS: cilostazoL 100 MG TABLET PO (08:27)
[2020-03-23] MEDS: FINASTERIDE 5 MG TABLET PO (08:27)
[2020-03-23] MEDS: lamoTRIgine 100 MG TABLET PO (08:27)
[2020-03-23] MEDS: ISOSORBIDE MONONITRATE 60 MG TAB.ER.24H PO (08:27)
[2020-03-23] MEDS: RANOLAZINE 500 MG TAB.ER.12H PO (08:27)
[2020-03-23] MEDS: TAMSULOSIN HCL 0.4 MG CAPSULE PO (08:27)
[2020-03-23] MEDS: OXYBUTYNIN CHLORIDE 5 MG TABLET PO (08:27)
[2020-03-23] MEDS: PANTOPRAZOLE 40 MG TABLET PO (08:27)
[2020-03-23] MEDS: EUCERIN CREAM 120 GM JAR 1 APPLIC TOPICAL (08:28)
[2020-03-23 09:23] LABS: Glucose Point of Care 87 (65-105)
--- NOTE | 2020-03-23 10:15 | PM.DS ---
DS: Admitting Diagnosis Admitting Diagnosis Admitting Diagnosis: acute respiratory failure/copd DS: Discharge Diagnosis Discharge Diagnosis (1) Chest pain: Qualifiers: Chest pain type: chest pain due to myocardial ischemia Ischemic chest pain type: unstable angina pectoris Qualified Code(s): I20.0 - Unstable angina Code(s): R07.9 - Chest pain, unspecified Status: Acute Assessment and Plan: The patient initially started having shortness of breath along with dizziness/lightheadedness prior to arrival but then developed some substernal chest pain which he states was only with breathing. On Arrival his cardiac enzymes were negative x3. He does have an extensive cardiac history with CAD status post PCI and CABG, PAD with stents placed. Will continue on the patient's aspirin and Plavix at this time Initially due to his symptoms and workup they believed it was due to a COPD exacerbation for which we are treating him for. 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 Cardiology was consulted and evaluated him. He had a stress test in Jul 2019 which was unremarkable and his echocardiogram completed yesterday showed normal EF, diastolic grade 2, Mod pulm HTN and right ventricular chamber enlargement with normal function. Cardiology does not believe he is having acute coronary syndrome ruled out by negative ECGs and Troponins. He is euvolemic at this time. Recommend no further ischemic work up and recommends following up with Accessioner at [facility] for further evaluation. He has not had any more chest pain since arrival. (2) Acute on chronic respiratory failure with hypoxia and hypercapnia: Code(s): J96.21 - Acute and chronic respiratory failure with hypoxia; J96.22 - Acute and chronic respiratory failure with hypercapnia Status: Acute Assessment and Plan: The patient came into the hospital with increased shortness of breath with associated dizziness, lightheadedness and some substernal chest discomfort with breathing while he was walking around at the store. Based on his imaging and evaluation it appears he has COPD exacerbation. He was also acting very confused and states he does not remember most of what happened the 1st 2 days. He was found to have acute respiratory failure with hypoxia and hypercapnia on ABG with a pCO2 of 98. He was placed on a continuous BiPAP with improvement of his altered mental status and hypercapnia and pH. We are treating him for acute COPD exacerbation Pulmonology was consulted for further evaluation. He states he does not believe the patient's symptoms due to a COPD exacerbation and recommends discontinuing the IV Solu-Medrol, continuing Spiriva and Symbicort, and he does not believe that he will need a trilogy upon discharge. He is also concerned that his symptoms were related to underlying angina and cardiac related and recommend getting Cardiology involved. ABG this morning showed normal pH 7.379, with elevated pCO2 at 70.7 which is increased from yesterday being 56. Patient is otherwise A&Ox4, on 2L via NC and feeling well without any concerns. Pulmonology feels comfortable with discharge at this time. Will have him follow up with Pulmonology as an outpatient. Continue Spiriva and Symbicort and no need for prednisone taper or Trilogy at this time. Further evaluation can be completed as an outpatient in their office in 1-2 week follow up. (3) COPD (chronic obstructive pulmonary disease): Qualifiers: COPD type: unspecified COPD Qualified Code(s): J44.9 - Chronic obstructive pulmonary disease, unspecified Code(s): J44.9 - Chronic obstructive pulmonary disease, unspecified Status: Chronic
[2020-03-23 11:43] LABS: Glucose Point of Care 79 (65-105)
[2020-03-27 04:33] LABS: Prolactin 9.3 ng/mL (***)
== END 2020-03-23 12:15 | disposition home or self-care (01) | DRG 189 ==
LOC: ANHED 03-20 14:00 → ANHIMU 03-20 15:41 → ANH2MED 03-21 16:35
PROVIDERS: Emergency Medicine; General Practice; Internal Medicine Critical Care Medicine; Nurse Practitioner; Admitting Provider Internal Medicine; Emergency Provider Emergency Medicine; PCP Family Medicine; Visit Provider Physician Assistant
DX: J96.21 Acute and chronic respiratory failure with hypoxia (principal); I25.110 Atherosclerotic heart disease of native coronary artery with unstable angina pectoris; J96.22 Acute and chronic respiratory failure with hypercapnia; Z99.81 Dependence on supplemental oxygen; N40.0 Benign prostatic hyperplasia without lower urinary tract symptoms; E78.5 Hyperlipidemia, unspecified; I10 Essential (primary) hypertension; E11.9 Type 2 diabetes mellitus without complications; R56.9 Unspecified convulsions; R07.9 Chest pain, unspecified; Z95.5 Presence of coronary angioplasty implant and graft; J44.9 Chronic obstructive pulmonary disease, unspecified; Z23 Encounter for immunization
CPT/HCPCS: 36415; 36600; 71045; 71046; 71275; 74174; 80048; 80053; 82375; 82533; 82728; 82805; 83036; 83050; 83735; 83880; 84146; 84439; 84443; 84484; 85025; 85027; 85610; 85730; 90471; 90653; 93005; 93306; 93970; 94003; 94640; 94660; 96361; 96365; 96366; 96375; 97110; 97116; 97161; 97165; 97530; 97535; 99291; A9270; G0008; J1644; J2270; J2405; J2920; J2930; J7030; Q9967

== ENCOUNTER 2022-02-16 14:16 | Inpatient (IN) | payer MEDICARE, OTHER, SELFPAY ==
[2022-02-16] VITALS (55 sets, daily range): BP systolic 57–137; BP diastolic 37–120; PULSE 95–121; RESP 10–22; TEMP 36.4–37; O2SAT 91–100; BMI 24.4
--- NOTE | ~2022-02-16 | US_ITS ---
EXAMINATION: US carotid duplex BI DATE: 02/17/2022 08:29 INDICATION: Syncope. Cerebral atherosclerosis. TECHNIQUE: Grayscale, color Doppler, and pulsed Doppler images of the cervical carotid arteries were obtained. The degree of vessel stenosis is placed in one of the following categories: normal, <50%, 5 0-69%, >=70% but less than near-occlusion, near-occlusion, or total occlusion. Note that percent sten osis relative to normal distal artery lumen diameter is indirectly measured from velocity measurement s as described by Omer, et al. Radiology 2003; 229:340-346. COMPARISON: None. FINDINGS: RIGHT: The right common carotid artery (CCA) peak systolic velocity (PSV) is 112 cm/s. The right internal ca rotid artery (ICA) PSV is 167 cm/s. The right ICA end-diastolic velocity (EDV) is 59 cm/s. The right ICA/CCA PSV ratio is 1.5. Grayscale and color Doppler images yield an estimate of 50-69% diameter red uction from plaque in the ICA. The external carotid artery (ECA) PSV is 201 cm/s. There is antegrade flow in the right vertebral artery. LEFT: The left CCA PSV is 158 cm/s. The left ICA PSV is 153 cm/s. The left ICA EDV is 58 cm/s. The left ICA /CCA PSV ratio is 1.0. Grayscale and color Doppler images yield an estimate of 50-69% diameter reduct ion from plaque in the ICA. The ECA PSV is 195 cm/s. There is antegrade flow in the left vertebral ar terri. IMPRESSION: 1. 50-69% stenosis in the right internal carotid artery. 2. 50-69% stenosis in the left internal carotid artery. Reviewed, dictated and finalized at location A.
--- NOTE | ~2022-02-16 | US_ITS ---
EXAMINATION: US right upper quadrant DATE: 02/17/2022 15:04 INDICATION: Acute cholecystitis. TECHNIQUE: Multiple grayscale and Doppler ultrasound images of the abdomen were obtained. COMPARISON: CT 02/16/2022, 03/19/20 FINDINGS: The pancreas is obscured by bowel gas. The liver is normal without focal lesion. There is n ormal flow in main portal vein. The gallbladder is distended. There is a large gallstone in the gallb ladder neck. No gallbladder wall thickening or sonographic Lfannery sign. The common duct is normal and measures 5 mm. IMPRESSION: 1. Distended gallbladder with gallstone, but no gallbladder wall thickening or sonographic Flannery sig n to suggest acute cholecystitis. Consider hepatobiliary scintigraphy. Reviewed, dictated and finalized at location A. IMPRESSION: 1. Distended gallbladder with gallstone, but no gallbladder wall thickening or sonographic Flannery sign to suggest acute cholecystitis. Consider hepatobiliary scintigraphy.
--- NOTE | ~2022-02-16 | XR_ITS ---
EXAMINATION: XR chest 1V portable Exam Date/Time: 02/16/2022 14:30 CDT HISTORY: chest pain, pressure Comparison: 03/20/2020. RESULT: Lines, tubes, and devices: Right shoulder arthroplasty. Intact sternotomy wires. Mediastinal vascular clips. Incompletely visualized lumbar fusion hardware. Lungs and pleura: Chronic right hemidiaphragm elevation and right lateral pleural scarring. Decrease d visualization of the chronic reticular opacities, likely representing senescent change. Chronic ple ural calcification. Cardiomediastinal silhouette: Stable. Other: No acute osseous or upper abdominal finding. IMPRESSION: No acute cardiopulmonary process. Reviewed, dictated and finalized at location K.
--- NOTE | ~2022-02-16 | CT_ITS ---
EXAMINATION: CTA chest abdomen pelvis DATE: 02/16/2022 14:58 INDICATION: Chest pain TECHNIQUE: Computed tomographic angiography (CTA) of the chest, abdomen, and pelvis was performed wit h 100 mL Omnipque-350 intravenous contrast. Maximum intensity projection 3D-reconstructions of the ao rta and other arteries were constructed by the technologist on a separate workstation. The dose-lengt h product (DLP) was 680.61 mGy-cm. Automated exposure control and iterative reconstruction technique were employed. COMPARISON: 03/19/2020 FINDINGS: CHEST CTA: There is no aneurysm or dissection of the thoracic aorta. There are changes of coronary artery bypass grafting. Although contrast bolus is not timed for evaluation of the pulmonary arteries, no central pulmonary embolus is identified. There is a 5 mm nodule of the right lower lobe abutting the major fi ssure. There is a stable 6 mm nodule of the left lower lobe abutting the major fissure. There is a la rge hiatal hernia. There is reflux of gastric contents into the distal esophagus. There is moderate e mphysema. Healed right-sided rib fractures are noted. Changes of coronary artery bypass grafting are noted. There are no pathologically enlarged thoracic lymph nodes. ABDOMEN AND PELVIS CTA: There is no aneurysm or dissection of the abdominal aorta. There is calcified atherosclerosis at the origins of the superior and inferior mesenteric arteries and the celiac axis. Single renal arteries a re present bilaterally. There is calcified atherosclerosis and moderate stenosis of the common iliac arteries. There is mild atherosclerosis of the bilateral external iliac arteries. There is calcified atherosclerosis and severe stenosis of the bilateral internal iliac arteries. The liver, spleen, panc reas, and adrenal glands are normal. A stone is present in the gallbladder which demonstrates mild ch ronic distention. The kidneys are unremarkable. No pathologically enlarged abdominal or pelvic lymph nodes are identified. There is no free intraperitoneal gas or evidence of bowel obstruction. The appe ndix is normal. There are changes of anterior and posterior fusion in the lumbar spine with severe skylar mbar spondylosis. IMPRESSION: 1. No aneurysm or dissection of the thoracic or abdominal aorta. 2. Cholelithiasis with mild chronic gallbladder distention. Reviewed, dictated and finalized at location B.
--- NOTE | ~2022-02-16 | CT_ITS ---
EXAMINATION: CT brain wo con INDICATION: Transient alteration of awareness COMPARISON: None TECHNIQUE: Standard unenhanced head CT. The dose-length product (DLP) was 605.33 mGy-cm. The mA was a djusted according to patient size. Iterative reconstruction technique was employed. FINDINGS: There is no acute intraparenchymal hemorrhage. No evidence of mass lesion. No evidence of a cute infarction. There is mild periventricular and subcortical hypodensity probably related to small vessel ischemic disease. There is mild prominence of the sulci and ventricles related to cerebral atr ophy. Intracranial calcified cerebral atherosclerosis is noted. There are no extra-axial collections. There is no mass effect or midline shift. Changes in the globes are likely from ocular lens surgery. There is mild mucosal thickening of the paranasal sinuses. IMPRESSION: 1. No acute intracranial abnormality. 2. Age related findings. Reviewed, dictated and finalized at location B.
--- NOTE | 2022-02-16 14:25 | ECG_ITS ---
Rate 96 CT 133 QRSd 98 QT 371 QTc 469 --[place]- P 73 QRS 42 T 71 SINUS RHYTHM POSSIBLE LEFT ATRIAL ENLARGEMENT INCOMPLETE RIGHT BUNDLE BRANCH BLOCK ST ELEVATION IN ANTERIOR LEADS, PROBABLY EARLY REPOLARIZATION BORDERLINE ECG COMPARED TO ECG 03/20/2020 14:33:09 ST ELEVATION IN ANTERIOR LEADS, PROBABLY EARLY REPOLARIZATION NOW PRESENT Electronically Signed On 02-17-2022 12:04:07 CDT by Mike FUENTES
[2022-02-16] MEDS: SODIUM CHLORIDE 0.9% IV 500 ML 999 ML (14:34)
--- NOTE | 2022-02-16 14:39 | ED.GENADULT ---
HPI - General Adult General Chief complaint: Altered Mental Status Stated complaint: UNRESPONSIVE X 5 MIN, NOW ALERT BUT CONFUSED Time Seen by Provider: 02/16/22 14:20 History of Present Illness HPI narrative: Patient is a 71-year-old male who presents ER with syncope and collapse. He was at home when he walked outside and passed out. Witnessed by his brother. Patient was unconscious for 5 minutes. When EMS arrived he is oriented x4. At this time patient is reporting that he is having chest discomfort. Starts in his lower chest into his middle chest and is burning. It goes straight through his back to his shoulder blades and he is also feeling it into his neck. He has feeling tingling in his arms and legs. Related Data Home Medications Medication Instructions Recorded Confirmed albuterol sulfate 2.5 mg/0.5 mL 2.5 mg continuous nebulization Q6H 03/20/20 02/16/22 solution for nebulization aspirin 81 mg chewable tablet 81 mg PO DAILY 03/20/20 02/16/22 atorvastatin 40 mg tablet 80 mg PO HS 03/20/20 02/16/22 cilostazol 100 mg tablet 100 mg PO BID 03/20/20 02/16/22 clopidogrel 75 mg tablet 75 mg PO DAILY 03/20/20 02/16/22 duloxetine 30 mg capsule,delayed 30 mg PO HS 03/20/20 02/16/22 release finasteride 5 mg tablet 5 mg PO DAILY 03/20/20 02/16/22 isosorbide mononitrate 60 mg 60 mg PO DAILY 03/20/20 02/16/22 tablet,extended release 24 hr lamotrigine 25 mg tablet 125 mg PO BID 03/20/20 02/16/22 methocarbamol 750 mg tablet 500 mg PO QID PRN Muscle Spasm 03/20/20 02/16/22 metoprolol tartrate 100 mg tablet 100 mg PO Q12H 03/20/20 02/16/22 mirtazapine 45 mg tablet 45 mg PO HS 03/20/20 02/16/22 nitroglycerin 0.4 mg sublingual 0.4 mg sublingual Q5M PRN Chest 03/20/20 02/16/22 tablet Pain pantoprazole 40 mg tablet,delayed 40 mg PO BID 03/20/20 02/16/22 release pregabalin 100 mg capsule (Lyrica) 150 mg PO BID 03/20/20 02/16/22 ranolazine 500 mg tablet,extended 500 mg PO Q12H 03/20/20 02/16/22 release,12 hr (Ranexa) tamsulosin 0.4 mg capsule 0.4 mg PO HS 03/20/20 02/16/22 albuterol 90 mcg/actuation aerosol 90 mcg inhalation QID PRN 02/16/22 02/16/22 inhaler Shortness Of Breath Or Wheezing hydrocodone 5 mg-acetaminophen 325 1 tablet PO Q4H PRN Pain 02/16/22 02/16/22 mg tablet hydrophilic cream 1 applic topical DAILY 02/16/22 02/16/22 sennosides 8.6 mg capsule 8.6 mg PO DAILY PRN Constipation 02/16/22 02/16/22 tiotropium bromide 2.5 2 puff inhalation DAILY 02/16/22 02/16/22 mcg/actuation mist for inhalation Allergies Allergy/AdvReac Type Severity Reaction Status Date / Time gabapentin Allergy Unknown Unknown Verified 02/16/22 14:32 Review of Systems Review of Systems: ROS unobtainable: Yes unobtainable due to medical condition PMFSH Past Medical History Medical History (Updated 02/16/22 @ 22:32 by Miguel Angel Vargas MD) BPH (benign prostatic hyperplasia) CAD (coronary artery disease) Chronic back pain COPD (chronic obstructive pulmonary disease) Coronary artery disease 3 cardiac stents and 2 vessel CABG DM2 (diabetes mellitus, type 2) diet controlled Hyperlipidemia Hypertension Peripheral vascular disease Seizures Surgical History Surgical History (Updated 03/20/20 @ 18:53 by Shannan Thomas NP) History of back surgery screws and fusion of for vertebrae in lumbar region. History of thoracotomy History of tonsillectomy and adenoidectomy Hx of CABG 2v S/P peripheral artery angioplasty with stent placement Family History Family History Son Acute myocardial infarction Mother Diabetes mellitus Heart disease Father Heart disease Social History Social History (Updated 03/20/20 @ 19:13 by Shannan Thomas NP) Social History: The patient is . And his daughter Brenda is the durable power litigation attorney for healthcare. The patient desires to be a full code. He is now retired. He smokes about 3-4 cigarettes a day. He is a social drin
[2022-02-16 14:47] LABS: Basophils Percent Auto 0.4 % (0.2-1.2); Eosinophils Percent Auto 0.4 % (0-4.4); Hematocrit 39.8 % (42.0-52.0); Hemoglobin 12.6 g/dL (14.0-18.0); Immature Granulocyte Absolute 0.02 K/mm3 (0.00-0.031); Immature Granulocyte Percent A 0.3 % (0-0.5); Lymphocytes Percent Auto 27.2 % (18.3-44.2); Mean Corpuscular HGB Conc 31.7 g/dl (32-36); Mean Corpuscular Hemoglobin 27.8 pg (26-34); Mean Corpuscular Volume 87.9 fl (80-100); Mean Platelet Volume 10.3 fl (7.4-10.4); Monocytes Absolute Auto 0.6 K/mm3 (0.1-0.6); Monocytes Percent Auto 8.6 % (2.6-8.5); Neutrophils Absolute Auto 4.4 K/mm3 (1.3-6.7); Neutrophils Percent Auto 63.1 % (45.5-73.1); Platelet Count Result 192 k/mm3 (150-375); Red Blood Count 4.53 M/mm3 (4.6-6.20); Red Cell Distribution Width 19.7 % (11.5-14.5)
[2022-02-16 14:54] LABS: Estimated CRCL calculation 46 ml/min; Estimated Glomerular Filt Rate 50
[2022-02-16 14:58] LABS: Prothrombin Time 12.8 Seconds (11.1-14.7)
[2022-02-16 14:59] LABS: Alanine Aminotransferase 17 U/L (6-50); Albumin Level 3.8 g/dL (3.5-5.1); Alkaline Phosphatase 71 U/L (38-126); Anion Gap 12 mmol/L (8-16); Aspartate Amino Transferase 24 U/L (17-59); Bilirubin,Total 0.4 mg/dL (0.2-1.3); Blood Urea Nitrogen 29 mg/dL (9-20); Calcium 8.6 mg/dL (8.4-10.2); Carbon Dioxide 28 mmol/L (22-30); Chloride 96 mmol/L (98-107); Estimated CRCL calculation 49 ml/min; Estimated Glomerular Filt Rate 54; Glucose 126 mg/dL (65-110); Potassium 4.1 mmol/L (3.4-5.0); Sodium 136 mmol/L (137-145)
[2022-02-16 15:00] LABS: Partial Thromboplastin Time 22.4 SECONDS (22.3-36.8)
[2022-02-16 15:11] LABS: Troponin I < 0.012 ng/mL (0.000-0.034)
[2022-02-16] MEDS: SODIUM CHLORIDE 0.9% IV 2,300 ML/1,000 ML BAG 999 ML IV CONT ×2 (15:31→17:15)
[2022-02-16 16:12] LABS: Lactic Acid Reflex 3.6 mmol/L (0.7-2.0)
[2022-02-16] MEDS: ONDANSETRON INJ 4 MG/2 ML VIAL IV PUSH (16:12)
[2022-02-16] MEDS: SODIUM CHLORIDE 0.9% IV 1,000 ML 999 ML IV CONT (17:43)
[2022-02-16 18:12] LABS: Troponin I < 0.012 ng/mL (0.000-0.034)
[2022-02-16 18:49] LABS: Reflex Lactic Acid Yes or No Add Lactic
--- OUTSIDE RECORDS SUMMARY | 2022-02-16 19:06 | XMS_ITS | Continuity of Care Document ---
:1950 Author Organization [facility] Care Team Providers Name Role Phone [facility] Unavailable Unavailable Problems Combined list of problems from [employer] of [employer] and [facility] Affairs facilities. It does not include entries that were removed or entered in error. Problem Status Onset Problem Date of Comments Source Date Type Resolution Abnormal weight loss Active Condition [facility] Adjustment disorder Active Condition [facility] with depressed mood [facility] (SNOMED CT [id number]) [facility] Adjustment disorder Active Condition [facility] with mixed [facility] B disturbance of DIVIS ION emotions AND conduct Dickson's esophagus Active Condition [facility] Dickson's esophagus Active Condition [facility] (SNOMED CT [facility] C [id number]) DIVISION Carotid artery Active Condition Jul 06 [facility] stenosis 2014 Entered [facility] By: DIV[facility] GALINA SMITH Comment: 07/05/14 <50% bilateral carotid stenosis per carortid u/s Chronic obstructive Active Condition S
--- NOTE | 2022-02-16 19:54 | ADMGEN ---
This patient, Herb Vila, was admitted to IMU Room 232-01. Patient/family oriented to hospital policies and general routines including ID bracelet, bed and alarms, visiting hours, pain management, procedures, bathroom and other care routines, personal items, smoking policy, room service/diet, and visiting hours. Information on how to activate the Rapid Response Team has been discussed. Patient/Family are encouraged to report perceived risks to care and to ask questions if they do not understand what they are told or what they should do.
--- NOTE | 2022-02-16 20:45 | PM.IMHP ---
H&P: HPI History of Present Illness Date/Time: 02/16/22 20:45 Chief Complaint: Syncope Narrative: This is a 71-year-old male with past medical history significant for coronary artery disease status post bypass, tobacco dependence, COPD/emphysema, benign prostatic hyperplasia GERD. patient comes today after he was found unresponsive by his brother sitting in the passenger side of his car and a large emesis and in urinary incontinence. Patient states that his blood pressure was very low at that time with a systolic in the 60s prior to these patient denies any issues states that he has has been in his usual state of health did not have any warning symptoms, no vision changes, no chest pain, no lightheadedness, no vertigo, no palpitations, no PND, no orthopnea, no leg swelling. preliminary workup was significant for PMFSH Past Medical History Medical History (Updated 02/16/22 @ 22:32 by Miguel Angel Vargas MD) BPH (benign prostatic hyperplasia) CAD (coronary artery disease) Chronic back pain COPD (chronic obstructive pulmonary disease) Coronary artery disease 3 cardiac stents and 2 vessel CABG DM2 (diabetes mellitus, type 2) diet controlled Hyperlipidemia Hypertension Peripheral vascular disease Seizures Surgical History Surgical History (Updated 03/20/20 @ 18:53 by Shannan Thomas NP) History of back surgery screws and fusion of for vertebrae in lumbar region. History of thoracotomy History of tonsillectomy and adenoidectomy Hx of CABG 2v S/P peripheral artery angioplasty with stent placement Family History Family History Son Acute myocardial infarction Mother Diabetes mellitus Heart disease Father Heart disease Social History Social History (Updated 03/20/20 @ 19:13 by Shannan Thomas NP) Social History: The patient is . And his daughter Brenda is the durable power all around gear machine operator for healthcare. The patient desires to be a full code. He is now retired. He smokes about 3-4 cigarettes a day. He is a social drinker. He has 3 children Smoking packs per day: 0.2 Smoking cigarettes per day: 4.0 Years smoked: 30 Smoking pack-years: 6.00 Smoking status: Current every day smoker Tobacco type: cigarettes Second hand tobacco smoke exposure: Yes Alcohol intake: current Substance use: never Last use: one alcoholic drink per month Spiritual care concerns: No Meds Home Medications and Allergies Home Medications Medication Instructions Recorded Confirmed Type albuterol sulfate 2.5 mg/0.5 mL 2.5 mg continuous nebulization Q6H 03/20/20 02/16/22 History solution for nebulization aspirin 81 mg chewable tablet 81 mg PO DAILY 03/20/20 02/16/22 History atorvastatin 40 mg tablet 80 mg PO HS 03/20/20 02/16/22 History cilostazol 100 mg tablet 100 mg PO BID 03/20/20 02/16/22 History clopidogrel 75 mg tablet 75 mg PO DAILY 03/20/20 02/16/22 History duloxetine 30 mg capsule,delayed 30 mg PO HS 03/20/20 02/16/22 History release finasteride 5 mg tablet 5 mg PO DAILY 03/20/20 02/16/22 History isosorbide mononitrate 60 mg 60 mg PO DAILY 03/20/20 02/16/22 History tablet,extended release 24 hr lamotrigine 25 mg tablet 125 mg PO BID 03/20/20 02/16/22 History methocarbamol 750 mg tablet 500 mg PO QID PRN Muscle Spasm 03/20/20 02/16/22 History metoprolol tartrate 100 mg tablet 100 mg PO Q12H 03/20/20 02/16/22 History mirtazapine 45 mg tablet 45 mg PO HS 03/20/20 02/16/22 History nitroglycerin 0.4 mg sublingual 0.4 mg sublingual Q5M PRN Chest 03/20/20 02/16/22 History tablet Pain pantoprazole 40 mg tablet,delayed 40 mg PO BID 03/20/20 02/16/22 History release pregabalin 100 mg capsule (Lyrica) 150 mg PO BID 03/20/20 02/16/22 History ranolazine 500 mg tablet,extended 500 mg PO Q12H 03/20/20 02/16/22 History release,12 hr (Ranexa) tamsulosin 0.4 mg capsule 0.4 mg PO HS 03/20/20 02/16/22 History albuterol 90 mcg/actuation aerosol
[2022-02-16 21:50] LABS: Lactic Acid 0.9 mmol/L (0.7-2.0)
[2022-02-16 22:03] LABS: Troponin I < 0.012 ng/mL (0.000-0.034)
[2022-02-17] VITALS (25 sets, daily range): BP systolic 104–127; BP diastolic 51–72; PULSE 72–113; RESP 14–28; TEMP 36.6–36.9; O2SAT 92–100
--- NOTE | 2022-02-17 | ECHO_ITS ---
Patient Info Name: Herb Vila Age: 71 years : 1950 Gender: Male Ht: 69 in Wt: 165 lbs BSA: 1.92 m2 HR: 92 bpm BP: 127 / 65 mmHg Heart Rhythm: Sinus Rhythm Exam Date: 02/17/2022 1:51 PM Exam Location: [facility] Patient Status: Inpatient Admit Date: 02/16/2022 Staff Ordering Physician: Rafael Acevedo MD Etl Analyst: Sonu Flannery, KARINA, RT Attending Provider: Jase Garcia MD Referring Physician: Curtis KEN; Exam Type: CA echo doppler color flow Study Info Indications R55 - Syncope and collapse Complete two-dimensional, color flow and Doppler transthoracic echocardiogram is performed. Strain analysis performed. Summary 1. Complete two-dimensional, color flow and Doppler transthoracic echocardiogram is performed. 2. Left ventricular chamber dimension is normal. Heart is elongated. 3. Left ventricular systolic function is normal, estimated at 55%. 4. There is no increased left ventricular wall thickness. 5. The left ventricular diastolic function is grade I diastolic dysfunction. 6. Left ventricular septal wall motion is abnormal with septal motion related to bundle branch block. 7. Right ventricular systolic function is reduced. TAPSE 1.3. 8. There is trace mitral valve regurgitation. 9. There is no aortic valve stenosis. 10. There is trace tricuspid valve regurgitation. 11. No pulmonary hypertension, estimated pulmonary arterial systolic pressure is 34 mmHg. Left Ventricle Left ventricular chamber dimension is normal. Heart is elongated. Left ventricular systolic function is normal, estimated at 55%. There is no increased left ventricular wall thickness. Left ventricular septal wall motion is abnormal with septal motion related to bundle branch block. The left ventricular diastolic function is grade I diastolic dysfunction. Right Ventricle Right ventricular chamber dimension is normal. Right ventricular systolic function is reduced. TAPSE 1.3. Left Atria Left atrial chamber dimension is normal. Right Atria Right atrial chamber dimension is normal. Aortic Valve The aortic valve is not well visualized. There is no aortic valve stenosis. There is no aortic valve regurgitation. Pulmonic Valve The pulmonic valve is not well visualized. There is trace pulmonic regurgitation. Mitral Valve The mitral valve has thickened leaflets. There is trace mitral valve regurgitation. The mitral valve annulus is mildly calcified. Tricuspid Valve The tricuspid valve leaflets are normal. There is trace tricuspid valve regurgitation. No pulmonary hypertension, estimated pulmonary arterial systolic pressure is 34 mmHg. Pericardium/Pleural The pericardium appears normal. There is no pericardial effusion. Inferior Vena Cava Dilated inferior vena cava with >50% collapse upon inspiration consistent with elevated right atrial pressure, 10 mmHg. Aorta The aortic root size at the sinus of Valsalva is normal. There is mild aortic atherosclerosis. Left Ventricular Outflow Tract Name Value Normal LVOT 2D LVOT Diameter 2.0 cm LVOT Doppler LVOT Peak Gradient
--- NOTE | 2022-02-17 01:43 | PC.NURSE ---
Spoke with Dr Acevdeo per VTE prophylaxis and received order for lovenox 40mg daily.
--- NOTE | 2022-02-17 01:59 | PM.IMHP ---
H&P: HPI History of Present Illness Date/Time: 02/17/22 01:59 Chief Complaint: SYNCOPE Narrative: This is a 71-year-old male with past medical history significant for COPD/emphysema, coronary artery disease status post bypass, hypertension, benign prostatic hyperplasia, peripheral vascular disease, chronic back pain, type 2 diabetes mellitus, patient presents to the emergency room after he was found unresponsive by his brother who earlier on he accompanied for eye appointment when the brother he returned to the car found him unresponsive sitting in a pool of emesis and urine incontinence he was arousable after checking for responsiveness and was brought for evaluation to the emergency room blood pressure was systolic of 60 according to patient at that time. patient to call his medications early in the morning and he had lunch prior to these event had a hamburger and fries. preliminary workup was essentially nonrevealing, a CT angiogram was reported as: IMPRESSION: 1. No aneurysm or dissection of the thoracic or abdominal aorta. 2. Cholelithiasis with mild chronic gallbladder distention. EKG was reported as SINUS TACHYCARDIA POSSIBLE LEFT ATRIAL ENLARGEMENT INCOMPLETE RIGHT BUNDLE BRANCH BLOCK ABNORMAL ECG COMPARED TO ECG 03/20/2020 14:33:09 SINUS TACHYCARDIA NOW PRESENT Electronically Signed On 02-16-2022 creatinine 1.4, lactic acid 3.6 troponins x3 0.012 Review of Systems Review of Systems: syncopal episode, large emesis, urinary incontinence. Constitutional: Constitutional: Denies chills, Denies fatigue, Denies fever(s), Denies lethargy, Denies malaise and Denies weakness Eyes: Eyes: Denies change in vision ENT: Denies dysphagia, Denies vertigo, Denies dizziness and Denies odynophagia Cardiovascular: Cardiovascular: Denies chest pain, Denies chest pain at rest, Denies chest pain with activity, Reports syncope, Denies pedal edema, Denies irregular heart rhythm, Denies leg edema, Reports lightheadedness, Denies palpitations and Denies dyspnea on exertion Respiratory: Respiratory: Denies change in phlegm color, Denies chest congestion, Reports cough and Denies pain on inspiration Gastrointestinal: Gastrointestinal: Denies abdominal pain, Denies dyspepsia, Denies heartburn, Denies nausea and Reports vomiting Genitourinary: Genitourinary: Denies dysuria Musculoskeletal: Musculoskeletal: Denies abnormal gait, Reports back pain, Denies joint swelling and Denies muscle weakness Integumentary/Breasts: Skin/Breast: Denies rash Neurologic: Denies vertigo, Denies dizziness, Reports syncope, Denies focal weakness, Denies Sensory deficit (Neuro) and Denies weakness Psychiatric: Psychiatric: Reports no additional psychiatric complaints and Reports as per HPI Endocrine: Endocrine: Denies cold intolerance, Denies flushing, Denies heat intolerance, Denies polyphagia, Denies polydipsia and Denies palpitations Hematologic/Lymphatic: Hematologic/Lymphatic: Reports no additional hematologic/lymphatic complaints and Reports as per HPI Allergic/Immunologic: Allergic/Immunologic: Reports no additional allergic/immunologic complaints and Reports as per HPI PMFSH Past Medical History Medical History (Updated 02/17/22 @ 02:26 by Rafael Acevedo MD) BPH (benign prostatic hyperplasia) CAD (coronary artery disease) Chronic back pain COPD (chronic obstructive pulmonary disease) Coronary artery disease 3 cardiac stents and 2 vessel CABG DM2 (diabetes mellitus, type 2) diet controlled Hyperlipidemia Hypertension Peripheral vascular disease Seizures Surgical History Surgical History (Updated 03/20/20 @ 18:53 by Shannan Thomas NP) History of back surgery screws and fusion of for vertebrae in lumbar region. History of thoracotomy History of tonsillectomy and adenoidectomy Hx of CABG 2v S/P peripheral artery angioplasty with stent placement Family History Family History S
[2022-02-17] MEDS: LACTATED RINGERS 1,000 ML 75 ML IV CONT (02:01)
[2022-02-17] MEDS: LACTATED RINGERS 1,000 ML 100 ML IV CONT (02:32)
[2022-02-17] MEDS: ISOSORBIDE MONONITRATE 60 MG TAB.ER.24H PO (08:45)
[2022-02-17] MEDS: ASPIRIN 81 MG CHEWABLE TABLET PO (08:45)
[2022-02-17] MEDS: lamoTRIgine 25 MG TABLET PO ×2 (08:45→17:24)
[2022-02-17] MEDS: FINASTERIDE 5 MG TABLET PO (08:45)
[2022-02-17] MEDS: cilostazoL 100 MG TABLET PO ×2 (08:45→17:24)
[2022-02-17] MEDS: CLOPIDOGREL BISULFATE 75 MG TABLET PO (08:46)
[2022-02-17] MEDS: PANTOPRAZOLE 40 MG TABLET PO ×2 (08:46→17:24)
[2022-02-17] MEDS: EUCERIN CREAM 120 GM JAR 1 APPLIC TOPICAL (08:46)
[2022-02-17] MEDS: METOPROLOL TARTRATE 50 MG TAB 100 MG PO ×2 (08:46→20:05)
[2022-02-17] MEDS: RANOLAZINE 500 MG TAB.ER.12H PO ×2 (08:46→20:05)
[2022-02-17] MEDS: ENOXAPARIN 40 MG/0.4 ML SYRINGE SUB-Q (08:46)
[2022-02-17] MEDS: lamoTRIgine 100 MG TABLET PO ×2 (08:46→17:24)
[2022-02-17] MEDS: PREGABALIN (*CRX) 75 MG CAPSULE 150 MG PO ×2 (08:57→17:24)
[2022-02-17] MEDS: UMECLIDINIUM BROMIDE 62.5 MCG ELLIPTA 1 PUFF INHALATION (10:41)
[2022-02-17] MEDS: IPRATROPIUM BR 0.02% INH SOLN 0.5 MG/2.5 ML VIAL 1 MG INHALATION ×3 (10:41→21:01)
[2022-02-17] MEDS: ALBUTEROL SULFATE NEB 2.5 MG/3 ML INH INHALATION ×3 (10:41→21:01)
--- NOTE | 2022-02-17 11:45 | PM.CNGS ---
Assessment and Plan Assessment and plan (1) Cholelithiasis with cholecystitis: Code(s): K80.10 - Calculus of gallbladder with chronic cholecystitis without obstruction Status: Acute Assessment and Plan: CTA reviewed and discussed with the patient in detail. There is a large gallstone in his gallbladder with distention. The appearance of his gallbladder is similar on a CTA he had in 2020, without significant change. No evidence of inflammation around the gallbladder and his WBC and LFTs are normal. He denies any chest or abdominal pain today. His only tenderness on exam is on the left side of his abdomen, which would also be atypical for cholecystitis. He is tolerating a diet. RUQ ultrasound has been ordered and we will await those results. If this does not show evidence of acute cholecystitis, then we would recommend to continue with conservative management and monitoring while he has further work-up of his syncopal episode. He should continue a low fat diet to prevent any future complications. I discussed with the patient that he does have a large gallstone and may eventually benefit from a cholecystectomy, but there is no need for urgent intervention at this time. Thank you for allowing us to see the patient in consultation and we will continue to follow along with you. (2) Syncope and collapse: Code(s): R55 - Syncope and collapse Status: Acute Assessment and Plan: Patient with light-headedness, blurred vision, radiating neck pain with numbness/tingling in his hands prior to his syncopal episode. This does not seem to be related to his gallbladder. Could consider Neurology consultation to further evaluate if this was related to a seizure or any neurological etiology. (3) Chest pain: Qualifiers: Chest pain type: chest pain due to myocardial ischemia Ischemic chest pain type: unstable angina pectoris Qualified Code(s): I20.0 - Unstable angina Code(s): R07.9 - Chest pain, unspecified Status: Acute Assessment and Plan: Chest pain following his syncopal episode that resolved in the ER. Unlikely this is related to his gallbladder. Denies any chest pain or pressure on my evaluation. Further management per the primary service. Echo pending. (4) CAD (coronary artery disease): Code(s): I25.10 - Atherosclerotic heart disease of [place] coronary artery without angina pectoris Status: Acute Assessment and Plan: Increases risk of surgery. (5) Peripheral vascular disease: Code(s): I73.9 - Peripheral vascular disease, unspecified Status: Chronic (6) Antiplatelet or antithrombotic long-term use: Code(s): Z79.02 - custodial (current) use of antithrombotics/antiplatelets Status: Acute Assessment and Plan: Currently on Plavix. Increases risks of surgery. (7) COPD (chronic obstructive pulmonary disease): Qualifiers: COPD type: unspecified COPD Qualified Code(s): J44.9 - Chronic obstructive pulmonary disease, unspecified Code(s): J44.9 - Chronic obstructive pulmonary disease, unspecified Status: Chronic Assessment and Plan: Increases risks of surgery. (8) Seizures: Code(s): R56.9 - Unspecified convulsions Status: Chronic Assessment and Plan: History of seizures. [facility] Could consider Neurology consultation to evaluate a neurological cause of his syncopal episode, seizure? (9) DM2 (diabetes mellitus, type 2): Code(s): E11.9 - Type 2 diabetes mellitus without complications Status: Chronic (10) Obstructive sleep apnea: Code(s): G47.33 - Obstructive sleep apnea (adult) (pediatric) Status: Acute Assessment and Plan: Increases risks of surgery. Plan I have discussed the patient's case and plan of care with Dr. Palafox. Thank you for allowing us to see the patient in consultation and we will continue to follow along with you.
[2022-02-17 14:32] LABS: Appearance Urine Clear (Clear); Bilirubin Urine Negative (Negative); Blood Urine Negative (Negative); Color Urine Yellow (Yellow); Glucose Urine UA Negative (Negative); Ketones Urine Negative (Negative); Leukocyte Esterase Ur Negative LEU/UL (Negative); Nitrate Urine Negative (Negative); Protein Urine Negative (Negative); Urobilinogen Urine 0.2 mg/dL (<2.0)
[2022-02-17 14:33] LABS: Add Urine Microscopic? NO
--- NOTE | 2022-02-17 14:39 | PC.NURSE ---
This patient, Herb Vila, was transferred to [[id number] ] on 02/17/22 at 1440. Personal belongings sent with patient. Report given to [FRANCOISE Tolbert @ 1334 ]. Appropriate documentation sent with patient. Pt will go to US prior to heading to room 343
--- NOTE | 2022-02-17 15:11 | PC.NURSE ---
Pt arrived to floor via stretcher from US. Report received from IMU.
--- NOTE | 2022-02-17 18:09 | PM.IMPN ---
Progress Note: A&P Assessment and Plan (1) Syncope and collapse: Code(s): R55 - Syncope and collapse Status: Acute Assessment and Plan: apparently vasovagal syncopal episode preliminary workup essentially nonrevealing patient had large meal prior to this carotid Doppler with 50-69% stenosis Echo with 55% ejection fraction grade 1 diastolic dysfunction. Right ventricular systolic function reduced. No pulmonary hypertension no other valvular abnormality CTA negative for aneurysm or dissection CT abdomen showed cholelithiasis with mild chronic gallbladder distension. Right upper quadrant ultrasound with cholelithiasis without signs of cholecystitis. CT head Negative any acute abnormality EKG reviewed troponins negative x3 ruled out of ACS Elevated lactic acid on arrival at 3.6 UA is negative No prior history of seizure H&H stable On Zosyn for possible acute cholecystitis follow cultures (2) CAD (coronary artery disease): Code(s): I25.10 - Atherosclerotic heart disease of [place] coronary artery without angina pectoris Status: Acute Assessment and Plan: resume home meds chest pain-free continue to monitor (3) Chronic back pain: Code(s): M54.9 - Dorsalgia, unspecified; G89.29 - Other chronic pain Status: Chronic Assessment and Plan: resume home meds Tylenol p.r.n. (4) COPD (chronic obstructive pulmonary disease): Qualifiers: COPD type: unspecified COPD Qualified Code(s): J44.9 - Chronic obstructive pulmonary disease, unspecified Code(s): J44.9 - Chronic obstructive pulmonary disease, unspecified Status: Chronic Assessment and Plan: productive cough however no change in sputum quality breathing treatments q.6 hours patient does have some wheezing on physical exam (5) Obstructive sleep apnea: Code(s): G47.33 - Obstructive sleep apnea (adult) (pediatric) Status: Acute Assessment and Plan: currently on BiPAP due to desaturation into the 70s Plan DVT prophylaxis Lovenox Subjective Date/time seen: 02/17/22 18:09 Interval history: HPI:This is a 71-year-old male with past medical history significant for COPD/emphysema,? coronary artery disease status post bypass, hypertension, benign prostatic hyperplasia, peripheral vascular disease, chronic back pain, type 2 diabetes mellitus, patient presents to the emergency room after he was found unresponsive by his brother who earlier on he accompanied for eye appointment when the brother he returned to the car found him unresponsive sitting in a pool of emesis and urine incontinence he was arousable after checking for responsiveness and was brought for evaluation to the emergency room blood pressure was? systolic of 60 according to patient at that time. patient to call his medications early in the morning and he had lunch prior to these event had a hamburger and fries. preliminary workup was essentially nonrevealing, a CT angiogram was reported as: IMPRESSION: 1. No aneurysm or dissection of the thoracic or abdominal aorta. 2. Cholelithiasis with mild chronic gallbladder distention. ?EKG was reported as SINUS TACHYCARDIA POSSIBLE LEFT ATRIAL ENLARGEMENT INCOMPLETE RIGHT BUNDLE BRANCH BLOCK ABNORMAL ECG COMPARED TO ECG 03/20/2020 14:33:09 SINUS TACHYCARDIA NOW PRESENT Electronically Signed On 02-16-2022 ?creatinine 1.4, lactic acid 3.6 ?troponins x3 0.012 02/17/2022 feels okay. Reports on epigastric discomfort. Feels little nauseous. No vomiting. Denies any chest pain. Hypotension has resolved. Review of Systems Review of Systems: All systems reviewed & are unremarkable except as noted in HPI and below Exam Narrative: GENERAL: The patient is well developed, not in acute distress HEENT: Nonicteric sclerae, PERRLA, EOMI. Oropharynx clear. Moist mucous membranes. Conjunctivae appear well perfused. CHEST: Chest wall is nontender. HEART: Regular rat
[2022-02-17 19:31] LABS: Basophils Absolute Auto 0.1 K/mm3 (0.0-0.1); Basophils Percent Auto 0.9 % (0.2-1.2); Eosinophils Absolute Auto 0.1 K/mm3 (0-0.3); Hematocrit 38.1 % (42.0-52.0); Hemoglobin 11.4 g/dL (14.0-18.0); Immature Granulocyte Absolute 0.01 K/mm3 (0.00-0.031); Immature Granulocyte Percent A 0.2 % (0-0.5); Lymphocytes Absolute Auto 1.64 K/mm3 (0.9-3.2); Lymphocytes Percent Auto 29.9 % (18.3-44.2); Mean Corpuscular HGB Conc 29.9 g/dl (32-36); Mean Corpuscular Hemoglobin 27.5 pg (26-34); Mean Platelet Volume 10.2 fl (7.4-10.4); Monocytes Absolute Auto 0.5 K/mm3 (0.1-0.6); Monocytes Percent Auto 9.3 % (2.6-8.5); Neutrophils Absolute Auto 3.2 K/mm3 (1.3-6.7); Neutrophils Percent Auto 57.7 % (45.5-73.1); Platelet Count Result 153 k/mm3 (150-375); Red Blood Count 4.14 M/mm3 (4.6-6.20); Red Cell Distribution Width 19.9 % (11.5-14.5); White Blood Count 5.5 K/mm3 (4.5-10.0)
[2022-02-17 19:36] LABS: Alanine Aminotransferase 15 U/L (6-50); Albumin Level 3.3 g/dL (3.5-5.1); Alkaline Phosphatase 54 U/L (38-126); Anion Gap 7 mmol/L (8-16); Aspartate Amino Transferase 19 U/L (17-59); Bilirubin,Total 0.3 mg/dL (0.2-1.3); Blood Urea Nitrogen 15 mg/dL (9-20); Calcium 7.7 mg/dL (8.4-10.2); Carbon Dioxide 32 mmol/L (22-30); Chloride 98 mmol/L (98-107); Estimated CRCL calculation 72 ml/min; Estimated Glomerular Filt Rate > 60; Glucose 102 mg/dL (65-110); Magnesium 1.9 mg/dL (1.6-2.3); Potassium 4.4 mmol/L (3.4-5.0); Sodium 137 mmol/L (137-145)
[2022-02-17] MEDS: TAMSULOSIN HCL 0.4 MG CAPSULE PO (20:05)
[2022-02-17] MEDS: ATORVASTATIN 40 MG TABLET 80 MG PO (20:05)
[2022-02-17] MEDS: DULoxetine HCL 30 MG CAPSULE.DR PO (20:05)
[2022-02-17] MEDS: MIRTAZAPINE 15 MG TABLET 45 MG PO (20:06)
[2022-02-18] VITALS (15 sets, daily range): BP systolic 114–127; BP diastolic 58–74; PULSE 50–90; RESP 16–20; TEMP 36.3–36.8; O2SAT 92–100
[2022-02-18] MEDS: ALBUTEROL SULFATE NEB 2.5 MG/3 ML INH INHALATION ×4 (03:15→20:45)
[2022-02-18] MEDS: IPRATROPIUM BR 0.02% INH SOLN 0.5 MG/2.5 ML VIAL 1 MG INHALATION ×4 (03:15→20:45)
[2022-02-18 05:37] LABS: Basophils Percent Auto 0.5 % (0.2-1.2); Eosinophils Absolute Auto 0.1 K/mm3 (0-0.3); Eosinophils Percent Auto 1.4 % (0-4.4); Hematocrit 41.8 % (42.0-52.0); Hemoglobin 12.6 g/dL (14.0-18.0); Immature Granulocyte Absolute 0.02 K/mm3 (0.00-0.031); Immature Granulocyte Percent A 0.3 % (0-0.5); Lymphocytes Absolute Auto 2.08 K/mm3 (0.9-3.2); Lymphocytes Percent Auto 31.3 % (18.3-44.2); Mean Corpuscular HGB Conc 30.1 g/dl (32-36); Mean Corpuscular Hemoglobin 27.8 pg (26-34); Mean Corpuscular Volume 92.3 fl (80-100); Mean Platelet Volume 10.6 fl (7.4-10.4); Monocytes Absolute Auto 0.6 K/mm3 (0.1-0.6); Monocytes Percent Auto 8.4 % (2.6-8.5); Neutrophils Absolute Auto 3.9 K/mm3 (1.3-6.7); Neutrophils Percent Auto 58.1 % (45.5-73.1); Platelet Count Result 162 k/mm3 (150-375); Red Blood Count 4.53 M/mm3 (4.6-6.20); Red Cell Distribution Width 19.9 % (11.5-14.5); White Blood Count 6.6 K/mm3 (4.5-10.0)
[2022-02-18 05:44] LABS: Alanine Aminotransferase 17 U/L (6-50); Albumin Level 3.7 g/dL (3.5-5.1); Alkaline Phosphatase 65 U/L (38-126); Anion Gap 5 mmol/L (8-16); Aspartate Amino Transferase 22 U/L (17-59); Bilirubin,Total 0.5 mg/dL (0.2-1.3); Blood Urea Nitrogen 13 mg/dL (9-20); Calcium 8.5 mg/dL (8.4-10.2); Carbon Dioxide 35 mmol/L (22-30); Chloride 99 mmol/L (98-107); Estimated CRCL calculation 72 ml/min; Estimated Glomerular Filt Rate > 60; Glucose 102 mg/dL (65-110); Magnesium 2.1 mg/dL (1.6-2.3); Potassium 4.1 mmol/L (3.4-5.0); Sodium 139 mmol/L (137-145)
[2022-02-18] MEDS: ASPIRIN 81 MG CHEWABLE TABLET PO (09:03)
[2022-02-18] MEDS: CLOPIDOGREL BISULFATE 75 MG TABLET PO (09:03)
[2022-02-18] MEDS: cilostazoL 100 MG TABLET PO ×2 (09:03→16:26)
[2022-02-18] MEDS: PANTOPRAZOLE 40 MG TABLET PO ×2 (09:04→16:26)
[2022-02-18] MEDS: ISOSORBIDE MONONITRATE 60 MG TAB.ER.24H PO (09:04)
[2022-02-18] MEDS: lamoTRIgine 100 MG TABLET PO ×2 (09:04→16:26)
[2022-02-18] MEDS: lamoTRIgine 25 MG TABLET PO ×2 (09:04→16:26)
[2022-02-18] MEDS: FINASTERIDE 5 MG TABLET PO (09:04)
[2022-02-18] MEDS: RANOLAZINE 500 MG TAB.ER.12H PO ×2 (09:04→20:05)
[2022-02-18] MEDS: ENOXAPARIN 40 MG/0.4 ML SYRINGE SUB-Q (09:05)
[2022-02-18] MEDS: PREGABALIN (*CRX) 75 MG CAPSULE 150 MG PO ×2 (09:10→16:26)
[2022-02-18] MEDS: EUCERIN CREAM 120 GM JAR 1 APPLIC TOPICAL (09:11)
--- NOTE | 2022-02-18 10:11 | PM.PNGS ---
Progress Note: A&P Assessment and Plan (1) Cholelithiasis with cholecystitis: Code(s): K80.10 - Calculus of gallbladder with chronic cholecystitis without obstruction Status: Acute Assessment and Plan: He is tolerating a low-fat diet with no recurrent symptoms. No evidence of acute cholecystitis. No plans for surgery at this point. Okay to discharge from our standpoint when okay with other services. Recommend following a low-fat diet. May follow-up as an outpatient if having symptoms and wanting to discuss possibly cholecystectomy in the future. (2) Syncope and collapse: Code(s): R55 - Syncope and collapse Status: Acute Assessment and Plan: Further workup per primary service (3) Chest pain: Qualifiers: Chest pain type: chest pain due to myocardial ischemia Ischemic chest pain type: unstable angina pectoris Qualified Code(s): I20.0 - Unstable angina Code(s): R07.9 - Chest pain, unspecified Status: Acute Assessment and Plan: Resolved (4) CAD (coronary artery disease): Code(s): I25.10 - Atherosclerotic heart disease of [place] coronary artery without angina pectoris Status: Acute (5) Peripheral vascular disease: Code(s): I73.9 - Peripheral vascular disease, unspecified Status: Chronic (6) Antiplatelet or antithrombotic long-term use: Code(s): Z79.02 - long term care pharmacist (current) use of antithrombotics/antiplatelets Status: Acute (7) Seizures: Code(s): R56.9 - Unspecified convulsions Status: Chronic Plan I have discussed the patient's case and plan of care with Dr. Palafox. Subjective Subjective Date/Time Seen: 02/18/22 10:11 Patient reports: no new complaints, feels better, tolerating a regular diet (Low-fat diet) and afebrile Interval history: Patient sitting in the chair after breakfast and reportedly feeling well today. No abdominal pain or chest pain. No nausea or vomiting. Review of Systems Review of Systems: All systems reviewed & are unremarkable except as noted in HPI and below Exam Const: General: comfortable and no acute distress Orientation/consciousness: patient oriented x3 GI: Inspection: non-distended GI Palp: Yes Soft to palpation, Yes Tenderness to palpation present (GI) (Mild tenderness in left upper quadrant) and No Guarding due to palpation present (GI) Auscultation: normal bowel sounds Objective Data Vital Signs Vital Signs: Vital Signs - 24 hr 02/17/22 10:44 02/17/22 10:46 02/17/22 10:56 Temperature Pulse Rate 92 97 Respiratory Rate 18 18 Blood Pressure Pulse Oximetry 96 Oxygen Delivery Nasal Cannula Oxygen Flow Rate 2 02/17/22 14:20 02/17/22 14:32 02/17/22 15:31 Temperature Pulse Rate 73 75 77 Respiratory Rate 18 18 22 H Blood Pressure 107/51 L Pulse Oximetry 92 Oxygen Delivery Oxygen Flow Rate 02/17/22 20:05 02/17/22 21:02 02/17/22 21:12 Temperature Pulse Rate 76 72 73 Respiratory Rate 18 18 Blood Pressure Pulse Oximetry Oxygen Delivery Oxygen Flow Rate 02/17/22 21:17 02/17/22 23:53 02/18/22 03:15 Temperature 98.4 F Pulse Rate 81 88 75 Respiratory Rate 28 H 16 18 Blood Pressure 104/51 L Pulse Oximetry 97 95 Oxygen Delivery Autopap Oxygen Flow Rate 02/18/22 03:25 02/18/22 09:22 02/18/22 09:23 Temperature Pulse Rate 72 89 Respiratory Rate 18 18 Blood Pressure Pulse Oximetry 92 Oxygen Delivery Room Air Oxygen Flow Rate 02/18/22 09:34 02/18/22 09:39 Temperature 97.4 F L Pulse Rate 80 Respiratory Rate 18 18 Blood Pressure 127/58 L Pulse Oximetry 100 Oxygen Delivery Oxygen Flow Rate Intake/Output Intake/Output: Intake & Output 02/15/22 02/16/22 02/17/22 02/18/22 23:59 23:59 23:59 23:59 Intake Total 3550 2459.6 530 Output Total 3850 1475 Balance 3550 -1390.4 -945 Meds/Results Medications: Active Medications Generic
--- NOTE | 2022-02-18 17:38 | PM.IMPN ---
Progress Note: A&P Assessment and Plan (1) Syncope and collapse: Code(s): R55 - Syncope and collapse Status: Acute Assessment and Plan: Suspect seizure activity, neurology consult pending (2) CAD (coronary artery disease): Code(s): I25.10 - Atherosclerotic heart disease of [place] coronary artery without angina pectoris Status: Acute Assessment and Plan: resume home meds chest pain-free continue to monitor (3) Chronic back pain: Code(s): M54.9 - Dorsalgia, unspecified; G89.29 - Other chronic pain Status: Chronic Assessment and Plan: resume home meds Tylenol p.r.n. (4) COPD (chronic obstructive pulmonary disease): Qualifiers: COPD type: unspecified COPD Qualified Code(s): J44.9 - Chronic obstructive pulmonary disease, unspecified Code(s): J44.9 - Chronic obstructive pulmonary disease, unspecified Status: Chronic Assessment and Plan: productive cough however no change in sputum quality breathing treatments q.6 hours (5) Obstructive sleep apnea: Code(s): G47.33 - Obstructive sleep apnea (adult) (pediatric) Status: Acute Plan DVT prophylaxis with Lovenox GI prophylaxis not indicated Code status full code Subjective Date/time seen: 02/18/22 17:38 Interval history: Patient reports history of seizures in the past. No further syncopal or seizure activity. No overnight events noted. No chest pain or shortness of breath. No nausea, vomiting or diarrhea. No fevers or chills. Review of Systems Review of Systems: 12 point review of systems was assessed and was negative except as noted in the HPI Exam Narrative: General: No acute distress, alert and oriented per baseline HEENT: Atraumatic, normocephalic, mucous membranes moist CV: Regular rate and rhythm, S1, S2 Lungs: Clear to auscultation bilaterally, no rales or crackles noted, no wheezes, good air entry Abdomen: Soft, nontender, nondistended Extremities: Normal to inspection Skin: No rashes noted, no lesions or wounds seen Psych: Euthymic, normal affect Neuro: Cranial nerves 2-12 grossly intact, strength +5/5 upper and lower extremities bilaterally Objective Data Vital Signs Vital Signs: Vital Signs - 24 hr 02/17/22 20:05 02/17/22 21:02 02/17/22 21:12 Temperature Pulse Rate 76 72 73 Respiratory Rate 18 18 Blood Pressure Pulse Oximetry Oxygen Delivery 02/17/22 21:17 02/17/22 23:53 02/18/22 03:15 Temperature 98.4 F Pulse Rate 81 88 75 Respiratory Rate 28 H 16 18 Blood Pressure 104/51 L Pulse Oximetry 97 95 Oxygen Delivery Autopap 02/18/22 03:25 02/18/22 09:22 02/18/22 09:23 Temperature Pulse Rate 72 89 Respiratory Rate 18 18 Blood Pressure Pulse Oximetry 92 Oxygen Delivery Room Air 02/18/22 09:34 02/18/22 09:39 02/18/22 08:00 Temperature 97.4 F L Pulse Rate 80 Respiratory Rate 18 18 Blood Pressure 127/58 L Pulse Oximetry 100 Oxygen Delivery Room Air 02/18/22 11:50 02/18/22 14:34 02/18/22 15:43 Temperature 97.4 F L Pulse Rate 50 L 79 66 Respiratory Rate 16 20 Blood Pressure 121/61 Pulse Oximetry 96 Oxygen Delivery Intake/Output Intake/Output: Intake & Output 02/15/22 02/16/22 02/17/22 02/18/22 23:59 23:59 23:59 23:59 Intake Total 3550 2459.6 1370 Output Total 3850 3225 Balance 3550 -1390.4 -1855 Meds/Results Medications: Active Medications Generic Name Dose Route Start Last Admin Trade Name Freq PRN Reason Stop Dose Admin Hydrocodone Bitart/Acetaminophen 1 tab 02/17/22 01:33 Hydrocodone/Acetaminophen (*Crx) 5-325 Mg Tablet PO Q4H PRN Pain Rated 4-6 Albuterol 2 puff 02/17/22 01:33 Albuterol Sulfate (*Sp) Aerosol 1 Puff INHALATION QID PRN Shortness Of Breath Or Wheezing Albuterol 2.5 mg 02/17/22 08:00 02/18/22 15:39 Albuterol Sulfate Neb 2.5 Mg/3 Ml Inh INHALATION 2.5 mg Q6HRT
[2022-02-18] MEDS: MIRTAZAPINE 15 MG TABLET 45 MG PO (20:05)
[2022-02-18] MEDS: TAMSULOSIN HCL 0.4 MG CAPSULE PO (20:05)
[2022-02-18] MEDS: ATORVASTATIN 40 MG TABLET 80 MG PO (20:05)
[2022-02-18] MEDS: DULoxetine HCL 30 MG CAPSULE.DR PO (20:06)
[2022-02-18] MEDS: METOPROLOL TARTRATE 50 MG TAB 100 MG PO (20:06)
[2022-02-19] VITALS (9 sets, daily range): BP systolic 117–121; BP diastolic 60–65; PULSE 64–85; RESP 16–18; TEMP 36.3–36.6; O2SAT 94–100
[2022-02-19] MEDS: ALBUTEROL SULFATE NEB 2.5 MG/3 ML INH INHALATION ×3 (01:00→15:29)
[2022-02-19] MEDS: IPRATROPIUM BR 0.02% INH SOLN 0.5 MG/2.5 ML VIAL 1 MG INHALATION ×3 (01:00→15:28)
[2022-02-19] MEDS: ISOSORBIDE MONONITRATE 60 MG TAB.ER.24H PO (10:01)
[2022-02-19] MEDS: CLOPIDOGREL BISULFATE 75 MG TABLET PO (10:01)
[2022-02-19] MEDS: METOPROLOL TARTRATE 50 MG TAB 100 MG PO (10:01)
[2022-02-19] MEDS: FINASTERIDE 5 MG TABLET PO (10:01)
[2022-02-19] MEDS: RANOLAZINE 500 MG TAB.ER.12H PO (10:05)
[2022-02-19] MEDS: lamoTRIgine 25 MG TABLET PO ×2 (10:05→16:36)
[2022-02-19] MEDS: ASPIRIN 81 MG CHEWABLE TABLET PO (10:05)
[2022-02-19] MEDS: ENOXAPARIN 40 MG/0.4 ML SYRINGE SUB-Q (10:05)
[2022-02-19] MEDS: cilostazoL 100 MG TABLET PO ×2 (10:05→16:36)
[2022-02-19] MEDS: PANTOPRAZOLE 40 MG TABLET PO ×2 (10:06→16:36)
[2022-02-19] MEDS: lamoTRIgine 100 MG TABLET PO ×2 (10:06→16:36)
--- NOTE | 2022-02-19 12:30 | WPDNEURCNPN ---
Assessment and Plan Assessment and plan (1) Seizures: Code(s): R56.9 - Unspecified convulsions Status: Chronic Assessment and Plan: considering the history of seizures though she has no history of acute seizure at this stage Lamictal 100 mg b.i.d. will be sufficient in addition he is also taking Lyrica 150 mg b.i.d. a routine EEG can be obtained Consult date: 02/19/22 Time Seen: 11:00 Reason for consult: change in the mental status HPI: Herb Vila is a 71 year old male admitted to the hospital through the emergency room with the information that he walked outside and passed out which was witnessed by his brother and he was unconscious for 5 minutes on arrival of EMS he was oriented x4 and he mentioned that he was having some chest discomfort in the middle of the chest burning sensation going straight through is back to his shoulder blade, has been taking medication particularly aspirin 81 mg daily atorvastatin 40 mg daily clopidogrel 75 mg daily with duloxetine 30 mg daily lamotrigine 125 mg b.i.d. minute has a pain 45 mg daily pregabalin 150 mg twice a day in addition to other medications and also with information that is allergic to gabapentin has ongoing history of hypertension, type 2 diabetes mellitus, coronary artery disease with 3 cardiac stents and 2 vessel CABG chronic back pain as well in addition to the history of seizures, back surgery, patient is currently everyday smoker with history of 30 years smoked and currently alcohol intake initial exam in the Emergency Room otherwise nonfocal and normal initial vital signs were stable except blood pressure 70/44 CBC unremarkable routine lab unremarkable with troponin less than 0.012 negative chest x-ray normal CTA of the chest for the aneurysm or dissection of the thoracic or abdominal aorta but with cholelithiasis and mild chronic gallbladder distention currently receiving aspirin 81 mg daily with Plavix 75 mg daily and all his other medications, has been seen by the general surgeon about the large gallstone in the gallbladder with distension and with a plan to follow him as an outpatient because of no acute situation Review of Systems Review of Systems: All systems reviewed & are unremarkable except as noted in HPI and below PMFSH Past Medical History Medical History BPH (benign prostatic hyperplasia) CAD (coronary artery disease) Chronic back pain COPD (chronic obstructive pulmonary disease) Coronary artery disease 3 cardiac stents and 2 vessel CABG DM2 (diabetes mellitus, type 2) diet controlled Hyperlipidemia Hypertension Peripheral vascular disease Seizures Surgical History Surgical History History of back surgery screws and fusion of for vertebrae in lumbar region. History of thoracotomy History of tonsillectomy and adenoidectomy Hx of CABG 2v S/P peripheral artery angioplasty with stent placement Family History Family History Son Acute myocardial infarction Mother Diabetes mellitus Heart disease Father Heart disease Social History Social History Social History: The patient is . And his daughter Brenda is the durable power managing attorney for healthcare. The patient desires to be a full code. He is now retired. He smokes about 3-4 cigarettes a day. He is a social drinker. He has 3 children Smoking packs per day: 0.2 Smoking cigarettes per day: 4.0 Years smoked: 30 Smoking pack-years: 6.00 Smoking status: Current every day smoker Tobacco type: cigarettes Second hand tobacco smoke exposure: Yes Alcohol intake: current Substance use: never Last use: one alcoholic drink per month Spiritual care concerns: No Meds Home Medications and Allergies Home Medications Medication Instructions
[2022-02-19] MEDS: PREGABALIN (*CRX) 75 MG CAPSULE 150 MG PO (13:43)
[2022-02-19] MEDS: EUCERIN CREAM 120 GM JAR 1 APPLIC TOPICAL (16:35)
--- NOTE | 2022-02-19 16:43 | PM.DS ---
DS: Admitting Diagnosis Discharge Date February 19, 2022 Admitting Diagnosis Altered mental status DS: Discharge Diagnosis Discharge Diagnosis (1) Syncope and collapse: Code(s): R55 - Syncope and collapse Status: Acute Assessment and Plan: Suspect seizure activity, neurology consult pending (2) CAD (coronary artery disease): Code(s): I25.10 - Atherosclerotic heart disease of [place] coronary artery without angina pectoris Status: Acute Assessment and Plan: resume home meds chest pain-free continue to monitor (3) Chronic back pain: Code(s): M54.9 - Dorsalgia, unspecified; G89.29 - Other chronic pain Status: Chronic Assessment and Plan: resume home meds Tylenol p.r.n. (4) COPD (chronic obstructive pulmonary disease): Qualifiers: COPD type: unspecified COPD Qualified Code(s): J44.9 - Chronic obstructive pulmonary disease, unspecified Code(s): J44.9 - Chronic obstructive pulmonary disease, unspecified Status: Chronic Assessment and Plan: productive cough however no change in sputum quality breathing treatments q.6 hours (5) Obstructive sleep apnea: Code(s): G47.33 - Obstructive sleep apnea (adult) (pediatric) Status: Acute Plan DVT prophylaxis with Lovenox GI prophylaxis not indicated Code status full code DS: Summary Hospital Course Hospital Course: 71-year-old male with past medical history significant for COPD/emphysema,? coronary artery disease status post bypass, hypertension, benign prostatic hyperplasia, peripheral vascular disease, chronic back pain, type 2 diabetes mellitus, patient presents to the emergency room after he was found unresponsive by his brother who earlier on he accompanied for eye appointment when the brother he returned to the car found him unresponsive sitting in a pool of emesis and urine incontinence he was arousable after checking for responsiveness and was brought for evaluation to the emergency room blood pressure was? systolic of 60 according to patient at that time. patient to call his medications early in the morning and he had lunch prior to these event had a hamburger and fries. General surgery was consulted for possible cholelithiasis and cholecystitis. They did not think this is contributing to any of his symptoms noted they think it was infected and needed to be removed. If his cholelithiasis starts causing symptoms, surgery can be reconsulted on an outpatient basis for cholecystectomy. Neurology was consulted due to concern for seizure activity. EEG was ordered and is pending. Patient is to continue his Lamictal and Lyrica and follow-up with Neurology outpatient to see the results of the EEG. He was discharged in good condition with close outpatient follow-up. Time Spent with Patient Time attestation: Total time spent providing and/or coordinating discharge services: Exam Narrative: General: No acute distress, alert and oriented per baseline HEENT: Atraumatic, normocephalic, mucous membranes moist CV: Regular rate and rhythm, S1, S2 Lungs: Clear to auscultation bilaterally, no rales or crackles noted, no wheezes, good air entry Abdomen: Soft, nontender, nondistended Extremities: Normal to inspection Skin: No rashes noted, no lesions or wounds seen Psych: Euthymic, normal affect Neuro: Cranial nerves 2-12 grossly intact, strength +5/5 upper and lower extremities bilaterally DS: Data Data Completed and Pending Labs on day of discharge: Labs from last 24 hours 02/16/22 21:33 Lactic Acid 0.9 Preliminary micro results at discharge 02/17/22 04:35 Blood Culture - Preliminary Blood 02/17/22 04:40 Blood Culture - Preliminary Blood Discharge Plan Discharge Attending physician on discharge: Angie Jain Consulting providers: Jose Palafox ; Afshin Clinton ; Kayla Box ; Rafael Acevedo V. ; Socrates Crooks ; Queenie
--- NOTE | 2022-02-20 14:42 | WPDNEUROLOGY ---
Neurology EEG Report General Information Date of Study: 02/19/22 TEST EEG DIAGNOSIS seizures CONDITION OF RECORDING drowsy and sleep EEG NUMBER [id number] CLINICAL HISTORY patient reports 2 days ago he was sitting in his truck when he got a bad neck and head ache and lost consciousness patient has history of seizures but has not had 1 in the last 9 years EEG DESCRIPTION background rhythm consists of low-voltage 15 to 18 hertz per 2nd beta activity admixed with poorly organized low voltage 9 to 11 hertz per 2nd alpha posterior. Bilateral symmetrical sleep activity seen during sleep. Hyperventilation not done. Photic stimulation not done. Non paroxysmal. Nonfocal. Nonlateralizing. IMPRESSION No significant abnormalities noted and there is no evidence of any paroxysmal activity on this tracing clinical correlation recommended
== END 2022-02-19 18:55 | disposition home or self-care (01) | DRG 101 ==
LOC: ANHED 14:40 → ANHIMU 19:03 → ANH3MED 02-17 14:43
PROVIDERS: Admitting Provider Internal Medicine; Emergency Provider Emergency Medicine; PCP Family Medicine; Visit Provider Student in an Organized Health Care Education/Training Program
DX: R56.9 Unspecified convulsions (principal); K80.20 Calculus of gallbladder without cholecystitis without obstruction; R55 Syncope and collapse; J43.9 Emphysema, unspecified; R11.10 Vomiting, unspecified; R07.9 Chest pain, unspecified; E78.5 Hyperlipidemia, unspecified; E11.51 Type 2 diabetes mellitus with diabetic peripheral angiopathy without gangrene; F17.210 Nicotine dependence, cigarettes, uncomplicated; G47.33 Obstructive sleep apnea (adult) (pediatric); G89.29 Other chronic pain; I10 Essential (primary) hypertension; I95.9 Hypotension, unspecified; I25.10 Atherosclerotic heart disease of native coronary artery without angina pectoris; K21.9 Gastro-esophageal reflux disease without esophagitis; M54.9 Dorsalgia, unspecified; N40.1 Benign prostatic hyperplasia with lower urinary tract symptoms; N39.498 Other specified urinary incontinence; Z95.1 Presence of aortocoronary bypass graft; Z95.5 Presence of coronary angioplasty implant and graft; Z79.82 Long term (current) use of aspirin; Z79.02 Long term (current) use of antithrombotics/antiplatelets
CPT/HCPCS: 36415; 70450; 71045; 71275; 74174; 76705; 80053; 81003; 83605; 83735; 84484; 85025; 85610; 85730; 87040; 93005; 93306; 93880; 94002; 94640; 95816; 96361; 96365; 96375; 99285; A9270; J1650; J2405; J2543; J7030; J7040; J7120; Q9967